=== PATIENT | female | born 1955 | race Caucasian/White ===

== ENCOUNTER 2016-10-20 07:06 | Emergency (ER) | payer MEDICARE ==
[~2016-10-20] VITALS: Ht 152.4 cm; Wt 104.3 kg
[2016-10-20 07:14] VITALS: BP 133/73
[2016-10-20] MEDS ORDERED: FLUT1SPR2 (07:21)
[2016-10-20] MEDS ORDERED: LEVO100T5 (07:21)
[2016-10-20] MEDS ORDERED: ROPI1TAB (07:21)
[2016-10-20] MEDS ORDERED: PRIM50TA6 (07:21)
[2016-10-20] MEDS ORDERED: FLUO1TAB3 (07:21)
[2016-10-20] MEDS ORDERED: MECLIZINE 25 MG TABLET PO ONE (07:45)
[2016-10-20] MEDS ORDERED: ZOFR4TAB3 PO (07:47)
[2016-10-20] MEDS ORDERED: MECL-68 PO (07:47)
== END 2016-10-20 08:05 | disposition home or self-care (01) ==
LOC: M ED 07:59
DX: H43.392 Other vitreous opacities, left eye (principal); H81.392 Other peripheral vertigo, left ear

== ENCOUNTER 2017-04-19 11:00 | Emergency (ER) | payer MEDICARE ==
[~2017-04-19] VITALS: Ht 162.6 cm; Wt 100.0 kg
[~2017-04-19 11:00] MED LIST: FLUO1TAB3; FLUT1SPR2; LEVO100T5; MECL-68 PO; PRIM50TA6; ROPI1TAB; ZOFR4TAB3 PO
[2017-04-19] MEDS ORDERED: HYDROmorphone HCL 1 MG/ML SYRINGE (J1170) IM ONE (12:15)
[2017-04-19] MEDS ORDERED: HYDR-3713 PO (12:47)
[2017-04-19 12:57] VITALS: BP 134/77
== END 2017-04-19 12:58 | disposition home or self-care (01) ==
LOC: M ED 11:00
DX: M25.561 Pain in right knee (principal); J45.909 Unspecified asthma, uncomplicated; E66.9 Obesity, unspecified; E03.9 Hypothyroidism, unspecified; M19.90 Unspecified osteoarthritis, unspecified site; F33.9 Major depressive disorder, recurrent, unspecified; Z79.899 Other long term (current) drug therapy; Z88.1 Allergy status to other antibiotic agents; Z98.0 Intestinal bypass and anastomosis status; Z85.038 Personal history of other malignant neoplasm of large intestine
CPT/HCPCS: 96372; 99282; J1170

== ENCOUNTER 2017-08-06 18:16 | Emergency (ER) | payer OTHER, MEDICARE ==
[2017-08-06] MEDS: ONDANSETRON 4MG/2ML VIAL (J2405) IV (21:15)
[2017-08-06] MEDS: NS 1,000 ML IV (21:15)
[2017-08-06 21:43] LABS: BASO % 0.2 % (0.0-1.0); EOS # 0.1 10^3/uL (0.0-0.50); EOS % 0.7 % (0.0-3.0); HEMATOCRIT 43.4 % (36.0-47.0); IMMATURE GRANULOCYTE % 0.2 % (0-0); LYMPH # 1.5 10^3/uL (1.5-4.5); LYMPH % 17.2 % (24.0-44.0); MEAN CORPUSCULAR HEMOGLOBIN 29.5 pg (27.0-33.0); MEAN CORPUSCULAR HGB CONC 32.3 g/dl (32.0-36.5); MEAN CORPUSCULAR VOLUME 91.4 fl (80.0-96.0); MONO # 0.4 10^3/uL (0.0-0.8); MONO % 4.9 % (0.0-5.0); NEUTROPHILS # 6.6 10^3/uL (1.8-7.7); NEUTROPHILS % 76.8 % (36.0-66.0); PLATELET COUNT, AUTOMATED 212 10^3/uL (150-450); RED BLOOD COUNT 4.75 10^6/uL (4.00-5.40); RED CELL DISTRIBUTION WIDTH 14.6 % (11.5-14.5); WHITE BLOOD COUNT 8.5 10^3/uL (4.0-10.0)
[2017-08-06 22:16] LABS: ALBUMIN 3.9 GM/DL (3.2-5.2); ALBUMIN/GLOBULIN RATIO 1.05 (1.00-1.93); ALKALINE PHOSPHATASE 63 U/L (45-117); ALT/SGPT 24 U/L (12-78); ANION GAP 7 MEQ/L (8-16); AST/SGOT 30 U/L (7-37); BILIRUBIN,TOTAL 0.5 MG/DL (0.2-1.0); BLOOD UREA NITROGEN 13 MG/DL (7-18); CALCIUM LEVEL 8.6 MG/DL (8.8-10.2); CARBON DIOXIDE LEVEL 27 MEQ/L (21-32); CHLORIDE LEVEL 104 MEQ/L (98-107); CREATININE FOR GFR 0.93 MG/DL (0.55-1.02); GLOMERULAR FILTRATION RATE > 60.0 (>45); GLUCOSE, FASTING 98 MG/DL (80-110); POTASSIUM SERUM 4.1 MEQ/L (3.5-5.1); SODIUM LEVEL 138 MEQ/L (136-145); TOTAL PROTEIN 7.6 GM/DL (6.4-8.2)
[2017-08-06] MEDS: ONDANSETRON 4 MG TAB (S0181) PO (23:10)
== END 2017-08-06 23:13 | disposition home or self-care (01) ==
LOC: M ED 18:16
DX: R11.2 Nausea with vomiting, unspecified (principal); R19.7 Diarrhea, unspecified; E03.9 Hypothyroidism, unspecified; G25.81 Restless legs syndrome; F32.9 Major depressive disorder, single episode, unspecified; R25.1 Tremor, unspecified; Z98.84 Bariatric surgery status; Z90.49 Acquired absence of other specified parts of digestive tract
CPT/HCPCS: J2405

== ENCOUNTER → 2017-08-26 | Outpatient (REF) | payer MEDICARE | LOC: M SFHCPLAZ 14:37 | DX: Z86.14 Personal history of Methicillin resistant Staphylococcus aureus infection (principal) | CPT/HCPCS: 87070 ==

== ENCOUNTER 2018-07-12 16:26 | Emergency (ER) | payer OTHER ==
[2018-07-12] MEDS: ADACEL/BOOSTRIX VACCINE (DIPHTH/PERTUSS/ACELL/TETANUS)0.5ML SYR (90715) IM (17:49)
[2018-07-12] MEDS: DERMABOND TOPICAL SKIN ADHESIVE TOP (18:00)
== END 2018-07-12 18:33 | disposition home or self-care (01) ==
LOC: M ED 16:26
DX: S61.411A Laceration without foreign body of right hand, initial encounter (principal); S80.02XA Contusion of left knee, initial encounter; S00.83XA Contusion of other part of head, initial encounter; W01.0XXA Fall on same level from slipping, tripping and stumbling without subsequent striking against object, initial encounter; Y92.018 Other place in single-family (private) house as the place of occurrence of the external cause; J45.909 Unspecified asthma, uncomplicated; E07.9 Disorder of thyroid, unspecified; F33.9 Major depressive disorder, recurrent, unspecified; R25.1 Tremor, unspecified; Z79.899 Other long term (current) drug therapy; Z79.890 Hormone replacement therapy; Z88.1 Allergy status to other antibiotic agents
CPT/HCPCS: 90715

== ENCOUNTER 2018-09-13 13:40 | Emergency (ER) | payer OTHER ==
[~2018-09-13] VITALS: Ht 149.9 cm; Wt 109.1 kg
[~2018-09-13 13:40] MED LIST changes: +ACET1TAB55 PO; +FLUO20CA19 PO; +HYDR-3713 PO; +VITA100072 PO; +ZOFR4TAB14 PO; -ZOFR4TAB3 PO
[2018-09-13] MEDS ORDERED: VITA-122 PO (13:47)
[2018-09-13] MEDS ORDERED: CO Q10CA PO (13:48)
[2018-09-13] MEDS ORDERED: ONDANSETRON 4MG/2ML VIAL (J2405) IV ONE (16:00)
[2018-09-13] MEDS ORDERED: KETOROLAC 30 MG/ML VIAL (J1885) IV ONE (16:00)
[2018-09-13] MEDS ORDERED: MORPHINE 2 MG/ML 1ML SYRINGE (J2270) IV PRN (16:00)
[2018-09-13 16:14] LABS: BASO # 0.1 10^3/uL (0.0-0.2); BASO % 0.6 % (0.0-1.0); EOS # 0.2 10^3/uL (0.0-0.50); EOS % 1.9 % (0.0-3.0); HEMATOCRIT 40.1 % (36.0-47.0); HEMOGLOBIN 12.8 g/dl (12.0-15.5); LYMPH # 3.9 10^3/uL (1.5-4.5); LYMPH % 45.6 % (24.0-44.0); MEAN CORPUSCULAR HEMOGLOBIN 29.6 pg (27.0-33.0); MEAN CORPUSCULAR HGB CONC 31.9 g/dl (32.0-36.5); MEAN CORPUSCULAR VOLUME 92.6 fl (80.0-96.0); MONO # 0.9 10^3/uL (0.0-0.8); MONO % 11.1 % (0.0-5.0); NEUTROPHILS # 3.4 10^3/uL (1.8-7.7); NEUTROPHILS % 40.6 % (36.0-66.0); PLATELET COUNT, AUTOMATED 212 10^3/uL (150-450); RED BLOOD COUNT 4.33 10^6/uL (4.00-5.40); WHITE BLOOD COUNT 8.5 10^3/uL (4.0-10.0)
[2018-09-13 16:40] LABS: ERYTHROCYTE SEDIMENTATION RATE 40 mm/hr (0-30)
[2018-09-13 16:48] LABS: ALBUMIN 3.7 GM/DL (3.2-5.2); ALT/SGPT 21 U/L (12-78); BILIRUBIN,DIRECT < 0.1 MG/DL (0.0-0.2); BILIRUBIN,TOTAL 0.2 MG/DL (0.2-1.0); BLOOD UREA NITROGEN 17 MG/DL (7-18); C REACTIVE PROTEIN QUANTITATIV 1.35 MG/DL (0.00-0.30); CALCIUM LEVEL 8.4 MG/DL (8.8-10.2); CARBON DIOXIDE LEVEL 30 MEQ/L (21-32); CHLORIDE LEVEL 105 MEQ/L (98-107); CREATININE FOR GFR 0.73 MG/DL (0.55-1.30); GLOMERULAR FILTRATION RATE > 60.0 (>45); GLUCOSE, FASTING 90 MG/DL (70-100); POTASSIUM SERUM 4.2 MEQ/L (3.5-5.1); SODIUM LEVEL 139 MEQ/L (136-145); TOTAL PROTEIN 7.3 GM/DL (6.4-8.2)
[2018-09-13] MEDS ORDERED: PROHANCE 279.3MG/ML 5ML VIAL (A9576) As Ordered ONE (18:45)
[2018-09-13] MEDS ORDERED: PROHANCE 279.3MG/ML 15ML VIAL (A9576) As Ordered ONE (18:46)
--- NOTE | 2018-09-13 20:29 | REPVR ---
EXAM: MR Lumbar Spine Without and With Contrast. EXAM DATE/TIME: 09/13/2018 6:27 PM CLINICAL HISTORY: 62 years old, female; Signs and symptoms; Lumbago with sciatica; Left; Patient HX: HX spinal osteo, elev esr, crp TECHNIQUE: Multiplanar magnetic resonance images of the lumbar spine without and with intravenous contrast. CONTRAST: 20 ml of prohance administered intravenously. COMPARISON: CR Spine. Lumbosacral, complete 09/13/2018 4:08 PM FINDINGS: Vertebrae: Mild vertebral signal demonstrated at L5 and S1 maybe related to prior infection. No acute marrow space edema demonstrated. Spinal cord: Normal signal. No cord compression. DISCS/SPINAL CANAL/NEURAL FORAMINA: L1-L2: Mild annular bulge at L1-2 without neural compromise. L2-L3: Mild annular bulge at L2-3 without neural compromise. Bilateral facet joint arthropathy. L3-L4: There is a mild central spinal stenosis at L3-4 secondary to diffuse annular bulging, thickened ligamentum flavum and facet joint arthropathy. Mild foraminal narrowing on the right. No lateral recess stenosis. L4-L5: There is a severe central spinal stenosis at L4-5 secondary to diffuse annular bulging, thickened ligamentum flavum and facet joint arthropathy. Mild foraminal narrowing on the left and moderate to severe foraminal stenosis on right. No lateral recess stenosis. L5-S1: Status post auto fusion L5-S1. Bilateral facet arthropathy. Soft tissues: Unremarkable. IMPRESSION: 1. Mild vertebral signal demonstrated at L5 and S1 maybe related to prior infection. No acute marrow space edema demonstrated. 2. There is a mild central spinal stenosis at L3-4 secondary to diffuse annular bulging, thickened ligamentum flavum and facet joint arthropathy. Mild foraminal narrowing on the right. No lateral recess stenosis. 3. There is a severe central spinal stenosis at L4-5 secondary to diffuse annular bulging, thickened ligamentum flavum and facet joint arthropathy. Mild foraminal narrowing on the left and moderate to severe foraminal stenosis on right. No lateral recess stenosis. Electronically signed by: Cheko Krishnan On 09/13/2018 20:29:31 PM
[2018-09-13] MEDS ORDERED: MORPHINE 4 MG/ML 1ML VIAL/SYRINGE (J2270) IV ONE (21:15)
[2018-09-13] MEDS ORDERED: PRED20TA PO (21:15)
[2018-09-13] MEDS ORDERED: traMADol 50 MG TAB (BULK 4 TAB ED) PO ONE (21:15)
[2018-09-13] MEDS ORDERED: dexameTHASONE 20 MG/5 ML VIAL (J1100) IV ONE (21:15)
[2018-09-13 22:15] VITALS: BP 139/60
--- NOTE | 2018-09-14 10:21 | REP ---
PELVIS: AP view of the pelvis is performed and demonstrates no fracture, dislocation, or intrinsic bone disease. IMPRESSION: No acute abnormalities. Electronically Signed by Rickey Waggoner MD 09/14/2018 10:42 P
--- NOTE | 2018-09-14 10:22 | REP ---
LEFT HIP, TWO VIEWS: Two views left hip are performed. There is no acute fracture, dislocation, or intrinsic bone disease. IMPRESSION: Negative left hip exam. Electronically Signed by Rickey Waggoner MD 09/14/2018 10:47 P
--- NOTE | 2018-09-14 10:24 | REP ---
LUMBOSACRAL SPINE: Five views of lumbosacral spine performed. There is no compression fracture. There is normal lumbar lordosis. There is mild diffuse spurring. There is mild disc space narrowing and subchondral sclerosis with vacuum at L4-5. There is severe narrowing at the L5-S1 disc space with subchondral sclerosis. Diffuse sclerosis and spurring is seen at the posterior facet joints. There is minimal narrowing at the L3-4 disc space. The posterior elements are intact. Metallic clips are seen in the pelvis. IMPRESSION: Degenerative changes, most significant at L5-S1 level. Electronically Signed by Rickey Waggoner MD 09/14/2018 10:48 P
--- NOTE | 2018-09-15 11:46 | ED PDOC ---
Post-Departure Follow-Up [facility]ri ls spine [facility]ed to [facility] for [facility] Martin Villegas MD Sep 15, 2018 11:46
== END 2018-09-13 22:21 | disposition home or self-care (01) ==
LOC: M ED 13:40
DX: G58.8 Other specified mononeuropathies (principal); M51.36 Other intervertebral disc degeneration, lumbar region; E07.9 Disorder of thyroid, unspecified; Z88.0 Allergy status to penicillin; Z79.890 Hormone replacement therapy; Z79.899 Other long term (current) drug therapy; Z98.890 Other specified postprocedural states
CPT/HCPCS: 72110; 72158; 72170; 73502; 80048; 80076; 83605; 85025; 85652; 86140; 87040; 93041; 94760; 96374; 96375; 96376; 99285; A9576; J1100; J1885; J2270; J2405

== ENCOUNTER 2019-04-19 19:56 | Emergency (ER) | payer OTHER ==
[~2019-04-19] VITALS: Ht 152.4 cm; Wt 104.5 kg
[~2019-04-19 19:56] MED LIST changes: +CO Q10CA PO; +PRED20TA PO; +VITA-122 PO; +VITA100018 PO; -VITA100072 PO
[2019-04-19 19:58] VITALS: BP 165/71
[2019-04-19] MEDS ORDERED: IBUPROFEN 600 MG TAB PO ONE (21:00)
--- NOTE | 2019-04-20 03:07 | REP ---
Clinical: Trauma. Injury. Technique: AP and lateral views of the right tibia / fibula. Findings: Advanced tricompartmental arthritic changes at the knee along with moderate arthritic changes at the ankle. No acute fracture or dislocation. No subcutaneous emphysema or foreign body. Impression: Degenerative changes at the knee and ankle. No acute fracture or dislocation. Electronically Signed by Ab Kimbrough MD 04/20/2019 02:58 A
--- NOTE | 2019-04-20 03:08 | REP ---
Clinical: Trauma. Injury. Technique: AP, lateral, bilateral oblique views of the right ankle. Findings: Generalized age-related arthritic changes are appreciated. No obvious acute fracture or dislocation identified. Moderate calcaneal heal spur noted. Ankle mortise appears intact. Impression: No acute fracture or dislocation appreciated. Electronically Signed by Ab Kimbrough MD 04/20/2019 02:59 A
== END 2019-04-19 21:02 | disposition home or self-care (01) ==
LOC: M ED 19:56
DX: S93.401A Sprain of unspecified ligament of right ankle, initial encounter (principal); X50.9XXA Other and unspecified overexertion or strenuous movements or postures, initial encounter; Y92.018 Other place in single-family (private) house as the place of occurrence of the external cause; I10 Essential (primary) hypertension; E07.9 Disorder of thyroid, unspecified; Z98.84 Bariatric surgery status; Z79.899 Other long term (current) drug therapy; Z79.890 Hormone replacement therapy; Z88.1 Allergy status to other antibiotic agents

== ENCOUNTER 2019-05-17 10:56 | Emergency (ER) | payer OTHER ==
[~2019-05-17] VITALS: Ht 149.9 cm; Wt 116.7 kg
[2019-05-17 12:23] LABS: BASO % 0.5 % (0.0-1.0); EOS # 0.1 10^3/uL (0.0-0.5); EOS % 1.4 % (0.0-3.0); HEMATOCRIT 43.1 % (36.0-47.0); HEMOGLOBIN 13.9 g/dl (12.0-15.5); LYMPH % 35.4 % (24.0-44.0); MEAN CORPUSCULAR HEMOGLOBIN 30.8 pg (27.0-33.0); MEAN CORPUSCULAR HGB CONC 32.3 g/dl (32.0-36.5); MEAN CORPUSCULAR VOLUME 95.6 fl (80.0-96.0); MONO # 0.7 10^3/uL (0.0-0.8); MONO % 8.3 % (0.0-5.0); NEUTROPHILS # 4.5 10^3/uL (1.5-8.5); NEUTROPHILS % 53.9 % (36.0-66.0); PLATELET COUNT, AUTOMATED 217 10^3/uL (150-450); RED BLOOD COUNT 4.51 10^6/uL (4.00-5.40); WHITE BLOOD COUNT 8.4 10^3/uL (4.0-10.0)
[2019-05-17] MEDS ORDERED: NS 1,000 ML IV ONE (13:00)
[2019-05-17] MEDS ORDERED: MECLIZINE 25 MG TABLET PO ONE (13:00)
--- NOTE | 2019-05-17 13:48 | REP ---
INDICATION: Dizziness. PROCEDURE: Unenhanced axial images of the brain were obtained from skull base to vertex. DATE AND TIME OF STUDY: 05/17/2019 13:36 COMPARISON STUDIES: 08/08/2013 FINDINGS: There is no acute intracranial hemorrhage, acute cortical infarction, mass effect or hydrocephalous. Tiny air fluid level is present within the right sphenoid sinus. Atherosclerosis of the visualized V4 segments is noted. CONCLUSION: No acute intracranial process. Minimal fluid within the right sphenoid sinus which may represent sequelae of acute paranasal sinus disease. Intracranial atherosclerotic disease. Electronically Signed by Harman Robertson DO 05/17/2019 01:40 P
[2019-05-17 14:37] LABS: ALBUMIN 3.6 GM/DL (3.2-5.2); ALT/SGPT 23 U/L (12-78); BILIRUBIN,TOTAL 0.5 MG/DL (0.2-1.0); BLOOD UREA NITROGEN 13 MG/DL (7-18); CALCIUM LEVEL 9.2 MG/DL (8.8-10.2); CARBON DIOXIDE LEVEL 31 MEQ/L (21-32); CHLORIDE LEVEL 102 MEQ/L (98-107); CK-MB VALUE MASS 1.3 NG/ML (<3.6); CPK CREATINE PHOSPHOKINASE 103 U/L (26-192); GLOMERULAR FILTRATION RATE > 60.0 (>45); GLUCOSE, FASTING 97 MG/DL (70-100); MB/CK RELATIVE INDEX 1.26 (< OR =4); POTASSIUM SERUM 4.6 MEQ/L (3.5-5.1); SODIUM LEVEL 137 MEQ/L (136-145); TOTAL PROTEIN 7.2 GM/DL (6.4-8.2); TROPONIN I < 0.02 NG/ML (< 0.10)
[2019-05-17] MEDS ORDERED: MECL-68 PO (15:56)
[2019-05-17 16:20] VITALS: BP 138/84
--- NOTE | 2019-05-18 07:36 | ECGEPIP ---
[facility] - ED Test Date: 2019-05-17 Pat Name: JANET BRADY Department: Room: - Gender: Female [employer] Att[employer]: DARRELL : 1955 Requested By: JUANA AG Order Number: [id number] Reading MD: Johnny Santo Measurements Intervals [place] Rate: 65 P: 56 FL: 172 QRS: 60 QRSD: 89 T: 42 QT: 416 QTc: 433 Interpretive Statements SINUS RHYTHM SIMILAR TO 03/31/16 Electronically Signed on 05-18-2019 7:35:37 EDT by Johnny Santo
== END 2019-05-17 16:22 | disposition home or self-care (01) ==
LOC: M ED 10:56
DX: H81.392 Other peripheral vertigo, left ear (principal); E03.9 Hypothyroidism, unspecified; G25.81 Restless legs syndrome; Z98.84 Bariatric surgery status; Z90.49 Acquired absence of other specified parts of digestive tract; Z79.899 Other long term (current) drug therapy; Z88.1 Allergy status to other antibiotic agents

== ENCOUNTER → 2019-06-09 | Outpatient (REF) | payer OTHER ==
[2019-06-09 20:22] LABS: BASO % 0.4 % (0.0-1.0); EOS # 0.2 10^3/uL (0.0-0.5); EOS % 1.5 % (0.0-3.0); HEMATOCRIT 43.8 % (36.0-47.0); HEMOGLOBIN 13.9 g/dl (12.0-15.5); LYMPH # 4.2 10^3/uL (1.5-5.0); LYMPH % 42.4 % (24.0-44.0); MEAN CORPUSCULAR HEMOGLOBIN 30.8 pg (27.0-33.0); MEAN CORPUSCULAR HGB CONC 31.7 g/dl (32.0-36.5); MEAN CORPUSCULAR VOLUME 97.1 fl (80.0-96.0); MONO # 0.8 10^3/uL (0.0-0.8); MONO % 7.9 % (0.0-5.0); NEUTROPHILS # 4.6 10^3/uL (1.5-8.5); NEUTROPHILS % 47.3 % (36.0-66.0); PLATELET COUNT, AUTOMATED 224 10^3/uL (150-450); RED BLOOD COUNT 4.51 10^6/uL (4.00-5.40); WHITE BLOOD COUNT 9.8 10^3/uL (4.0-10.0)
[2019-06-09 20:35] LABS: ALBUMIN 3.7 GM/DL (3.2-5.2); BILIRUBIN,TOTAL 0.2 MG/DL (0.2-1.0); CALCIUM LEVEL 9.4 MG/DL (8.8-10.2); CHOLESTEROL RISK RATIO 3.984 (<5); CREATININE FOR GFR 1.04 MG/DL (0.55-1.30); PERCENT SATURATION 18.3 % (13.2-45.0); POTASSIUM SERUM 4.1 MEQ/L (3.5-5.1); THYROID STIMULATING HORMONE 15.7 uIU/ML (0.358-3.740); TOTAL PROTEIN 7.7 GM/DL (6.4-8.2)
[2019-06-09 20:36] LABS: TOTAL 25(OH) VITAMIN D 18.3 NG/ML (30.0-100.0)
[2019-06-09 20:39] LABS: HEMOGLOBIN A1c 5.9 %
[2019-06-09 20:42] LABS: HEMATOCRIT 43.8 % (36.0-47.0)
== END ==
LOC: M SFHCLERA 15:48
PROVIDERS: ATTEND Family Medicine
DX: E66.01 Morbid (severe) obesity due to excess calories (principal); E03.9 Hypothyroidism, unspecified; E55.9 Vitamin D deficiency, unspecified; Z98.84 Bariatric surgery status; Z23 Encounter for immunization
CPT/HCPCS: 80053; 80061; 82306; 82607; 82728; 82747; 83036; 83550; 84443; 84630; 85025; 90471; 90472; 90682; 90715; 90732; G0463

== ENCOUNTER → 2019-06-10 | Outpatient (REF) | payer OTHER | LOC: M LABSMT 16:59 | PROVIDERS: ATTEND Family Medicine | DX: E66.01 Morbid (severe) obesity due to excess calories (principal); E03.9 Hypothyroidism, unspecified; E55.9 Vitamin D deficiency, unspecified; Z98.84 Bariatric surgery status ==

== ENCOUNTER → 2019-07-22 | Outpatient (REF) | payer OTHER | LOC: M SFHCLERA 12:38 | PROVIDERS: ATTEND Family Medicine | DX: E03.9 Hypothyroidism, unspecified (principal) ==

== ENCOUNTER 2019-08-26 10:46 | Day surgery (SDC) | payer OTHER ==
[~2019-08-26] VITALS: Ht 149.9 cm; Wt 115.2 kg
[~2019-08-26 10:46] MED LIST changes: +DICL1GEL3 TOP; +LEVO112T2 PO; -MECL-68 PO; +MECL-86 PO; +MECL1TAB31 PO; +NS 1,000 ML IV ONE; -ROPI1TAB; +ROPI1TAB PO; +VITA50005 PO
[2019-08-26] MEDS ORDERED: propofoL 200 MG/20 ML VIAL As Ordered ONE ×2 (11:33→12:09)
[2019-08-26] MEDS ORDERED: LIDOCAINE 2% INJ 100 MG/5 ML SDV (FOR ANES.) As Ordered ONE (11:33)
--- NOTE | 2019-08-26 11:57 | ROOR ---
Patient Name: Brooke Church Procedure Date: 08/26/2019 11:31 AM Date of : 1955 Age: 63 Room: [facility] Gender: Female Note Status: Finalized Procedure: Colonoscopy Indications: High risk colon cancer surveillance: Personal history of colon cancer Providers: Brooks Hansen Jr, MD Referring MD: Rickey DUMONT MD Requesting Provider: Medicines: Propofol per Anesthesia Complications: No immediate complications. Procedure: Pre-Anesthesia Assessment: - Prior to the procedure, a History and Physical was performed, and patient medications and allergies were reviewed. The patient is competent. The risks and benefits of the procedure and the sedation options and risks were discussed with the patient. All questions were answered and informed consent was obtained. Patient identification and proposed procedure were verified by the physician and the nurse in the pre-procedure area and in the procedure room. Mental Status Examination: alert and oriented. Airway Examination: normal oropharyngeal airway and neck mobility. Respiratory Examination: clear to auscultation. CV Examination: normal. ASA Grade Assessment: II - A patient with mild systemic disease. After reviewing the risks and benefits, the patient was deemed in satisfactory condition to undergo the procedure. The anesthesia plan was to use moderate sedation / analgesia (conscious sedation). Immediately prior to administration of medications, the patient was re-assessed for adequacy to receive sedatives. The heart rate, respiratory rate, oxygen saturations, blood pressure, adequacy of pulmonary ventilation, and response to care were monitored throughout the procedure. The physical status of the patient was re-assessed after the procedure. The Colonoscope was introduced through the anus and advanced to the cecum, identified by appendiceal orifice and ileocecal valve. The colonoscopy was performed without difficulty. The patient tolerated the procedure well. The quality of the bowel preparation was adequate. Findings: The rectum, descending colon, transverse colon, ascending colon, cecum, appendiceal orifice, ileocecal valve and anastomosis appeared normal. A small polyp was found in the sigmoid colon. The polyp was removed with a jumbo cold forceps. Resection and retrieval were complete. Impression: - The rectum, descending colon, transverse colon, ascending colon, cecum, appendiceal orifice, ileocecal valve and colonic anastomosis are normal. - One small polyp in the sigmoid colon, removed with a jumbo cold forceps. Resected and retrieved. Recommendation: - Repeat colonoscopy in 5 years for surveillance. Brooks Hansen MD Brooks Hansen Jr, MD 08/26/2019 11:56:47 AM Electronically signed by Brooks Hansen Jr, MD Number of Addenda: 0 Note Initiated On: 08/26/2019 11:31 AM Estimated Blood Loss: Estimated blood loss: none.
[2019-08-26 12:24] VITALS: BP 117/57
== END 2019-08-26 12:27 | disposition home or self-care (01) ==
LOC: M OPP 10:46
PROVIDERS: ATTEND Surgery
DX: Z12.11 Encounter for screening for malignant neoplasm of colon (principal); Z85.038 Personal history of other malignant neoplasm of large intestine; D12.5 Benign neoplasm of sigmoid colon; Z79.899 Other long term (current) drug therapy; Z88.1 Allergy status to other antibiotic agents; Z98.84 Bariatric surgery status

== ENCOUNTER 2021-02-23 22:06 | Emergency (ER) | payer OTHER ==
[~2021-02-23] VITALS: Ht 152.4 cm; Wt 113.0 kg
[~2021-02-23 22:06] MED LIST changes: +ACET1TAB16 PO; +ERGO500029 PO; -FLUO20CA19 PO; +FLUO20CA22 PO; -NS 1,000 ML IV ONE; -ROPI1TAB PO; +ROPI1TAB3 PO; -VITA50005 PO
[2021-02-23] MEDS ORDERED: LEVO150T7 (22:20)
--- NOTE | 2021-02-24 00:01 | REPVR ---
PROCEDURE INFORMATION: Exam: CT Head Without Contrast Exam date and time: 02/23/2021 11:41 PM Age: 65 years old Clinical indication: Pain; Headache not specified; Additional info: Headache, vomiting x 3 days TECHNIQUE: Imaging protocol: Computed tomography of the head without contrast. Radiation optimization: All CT scans at this facility use at least one of these dose optimization techniques: automated exposure control; mA and/or kV adjustment per patient size (includes targeted exams where dose is matched to clinical indication); or iterative reconstruction. COMPARISON: CT Head without contrast 05/17/2019 1:25 PM FINDINGS: There are no intra-or extra-axial hemorrhages or fluid collections. There is no mass effect or midline shift. Ventricles are nondilated for age. There are no focal parenchymal abnormalities. No calvarial fractures. Visualized paranasal sinuses and mastoid air cells are clear. IMPRESSION: No acute intracranial process. No intracranial hemorrhage. Electronically signed by: Sincere Henry On 02/24/2021 00:00:57 AM
[2021-02-24] MEDS ORDERED: NS 1,000 ML IV SCH (00:10)
[2021-02-24 00:25] LABS: BASO # 0.1 10^3/uL (0.0-0.2); BASO % 0.5 % (0.0-1.0); EOS # 0.1 10^3/uL (0.0-0.5); EOS % 0.6 % (0.0-3.0); HEMATOCRIT 43.4 % (36.0-47.0); HEMOGLOBIN 14.2 g/dl (12.0-15.5); LYMPH # 3.4 10^3/uL (1.5-5.0); LYMPH % 31.6 % (24.0-44.0); MEAN CORPUSCULAR HEMOGLOBIN 30.1 pg (27.0-33.0); MEAN CORPUSCULAR HGB CONC 32.7 g/dl (32.0-36.5); MEAN CORPUSCULAR VOLUME 92.1 fl (80.0-96.0); MONO # 0.9 10^3/uL (0.0-0.8); MONO % 7.9 % (2.0-8.0); NEUTROPHILS # 6.4 10^3/uL (1.5-8.5); NEUTROPHILS % 58.9 % (36.0-66.0); PLATELET COUNT, AUTOMATED 237 10^3/uL (150-450); RED BLOOD COUNT 4.71 10^6/uL (4.00-5.40); WHITE BLOOD COUNT 10.9 10^3/uL (4.0-10.0)
[2021-02-24] MEDS ORDERED: METOCLOPRAMIDE INJ 10MG/2ML VIAL (J2765 PER 1) IV ONE (00:30)
[2021-02-24 00:48] LABS: ALBUMIN 4.1 GM/DL (3.2-5.2); BILIRUBIN,DIRECT 0.2 MG/DL (0.0-0.2); BILIRUBIN,TOTAL 0.5 MG/DL (0.2-1.0); CALCIUM LEVEL 9.4 MG/DL (8.8-10.2); CREATININE FOR GFR 0.99 MG/DL (0.55-1.30); GLOMERULAR FILTRATION RATE 59.9 (>45); POTASSIUM SERUM 3.4 MEQ/L (3.5-5.1); TOTAL PROTEIN 8.1 GM/DL (6.4-8.2)
[2021-02-24] MEDS ORDERED: POTASSIUM CHLORIDE 10 MEQ SR TABLET PO ONE (01:00)
[2021-02-24 02:23] VITALS: BP 128/77
== END 2021-02-24 02:24 | disposition home or self-care (01) ==
LOC: M ED 22:06
DX: R51.9 Headache, unspecified (principal); Z85.038 Personal history of other malignant neoplasm of large intestine; M86.9 Osteomyelitis, unspecified; G25.81 Restless legs syndrome; Z98.84 Bariatric surgery status; E66.9 Obesity, unspecified; F33.9 Major depressive disorder, recurrent, unspecified; Z79.899 Other long term (current) drug therapy
CPT/HCPCS: 70450; 80048; 80076; 83690; 85025; 96361; 96374; 99284; J2765

== ENCOUNTER 2021-08-25 15:40 | Inpatient (IN) | payer OTHER ==
[~2021-08-25] VITALS: Ht 152.4 cm; Wt 117.1 kg
[~2021-08-25 15:40] MED LIST changes: +LEVO150T7 PO
[2021-08-25] MEDS ORDERED: MORPHINE 4 MG/ML 1ML VIAL/SYRINGE (J2270) IV ONE (17:10)
[2021-08-25] MEDS ORDERED: ONDANSETRON 4MG/2ML VIAL IV ONE (17:10)
[2021-08-25] MEDS ORDERED: NS 1,000 ML IV ONE (17:10)
[2021-08-25] MEDS ORDERED: DICYCLOMINE 10 MG CAP PO ONE (17:10)
[2021-08-25 17:18] LABS: BASO % 0.3 % (0.0-1.0); EOS # 0.1 10^3/uL (0.0-0.5); EOS % 0.6 % (0.0-3.0); HEMATOCRIT 45.1 % (36.0-47.0); HEMOGLOBIN 14.6 g/dl (12.0-15.5); LYMPH # 1.6 10^3/uL (1.5-5.0); MEAN CORPUSCULAR HEMOGLOBIN 30.4 pg (27.0-33.0); MEAN CORPUSCULAR HGB CONC 32.4 g/dl (32.0-36.5); MEAN CORPUSCULAR VOLUME 93.8 fl (80.0-96.0); MONO # 0.9 10^3/uL (0.0-0.8); NEUTROPHILS # 11.8 10^3/uL (1.5-8.5); NEUTROPHILS % 81.5 % (36.0-66.0); PLATELET COUNT, AUTOMATED 204 10^3/uL (150-450); RED BLOOD COUNT 4.81 10^6/uL (4.00-5.40); WHITE BLOOD COUNT 14.4 10^3/uL (4.0-10.0)
[2021-08-25 17:41] LABS: ALBUMIN 3.6 GM/DL (3.2-5.2); ALT/SGPT 27 U/L (12-78); BILIRUBIN,DIRECT 0.1 MG/DL (0.0-0.2); BILIRUBIN,TOTAL 0.3 MG/DL (0.2-1.0); BLOOD UREA NITROGEN 14 MG/DL (7-18); CALCIUM LEVEL 9.2 MG/DL (8.8-10.2); CARBON DIOXIDE LEVEL 30 MEQ/L (21-32); CHLORIDE LEVEL 104 MEQ/L (98-107); CREATININE FOR GFR 0.88 MG/DL (0.55-1.30); GLOMERULAR FILTRATION RATE > 60.0 (>45); GLUCOSE, FASTING 107 MG/DL (70-100); LIPASE 70 U/L (73-393); POTASSIUM SERUM 3.7 MEQ/L (3.5-5.1); SODIUM LEVEL 138 MEQ/L (136-145)
[2021-08-25] MEDS ORDERED: ISOVUE-370 76% 100ML VIAL As Ordered ONE (17:44)
[2021-08-25] MEDS ORDERED: KETOROLAC 30 MG/ML 1ML VIAL IV PRN (20:30)
[2021-08-25] MEDS ORDERED: ONDANSETRON 4MG/2ML VIAL IV PRN (20:30)
[2021-08-25] MEDS ORDERED: HOME MED LIST COMPLETE! XX SCH (21:05)
[2021-08-25 22:45] VITALS: BP 135/73
[2021-08-25] MEDS: LR 1,000 ML IV SCH (22:46)
[2021-08-26 02:00] VITALS: BP 141/75
[2021-08-26] MEDS: LR 1,000 ML IV SCH ×4 (05:01→23:02)
[2021-08-26 06:00] VITALS: BP 147/78
[2021-08-26 09:32] LABS: BASO % 0.2 % (0.0-1.0); EOS # 0.2 10^3/uL (0.0-0.5); EOS % 1.7 % (0.0-3.0); HEMATOCRIT 38.3 % (36.0-47.0); LYMPH # 2.9 10^3/uL (1.5-5.0); MEAN CORPUSCULAR HEMOGLOBIN 30.2 pg (27.0-33.0); MEAN CORPUSCULAR HGB CONC 31.9 g/dl (32.0-36.5); MEAN CORPUSCULAR VOLUME 94.8 fl (80.0-96.0); MONO # 0.7 10^3/uL (0.0-0.8); MONO % 7.9 % (2.0-8.0); NEUTROPHILS # 5.2 10^3/uL (1.5-8.5); NEUTROPHILS % 57.8 % (36.0-66.0); PLATELET COUNT, AUTOMATED 192 10^3/uL (150-450); RED BLOOD COUNT 4.04 10^6/uL (4.00-5.40)
[2021-08-26 09:33] LABS: HEMOGLOBIN 12.2 g/dl (12.0-15.5)
[2021-08-26 10:00] VITALS: BP 144/80
[2021-08-26] MEDS: MORPHINE 2 MG/ML 1ML VIAL (J2270) IV PRN ×2 (11:22→17:08)
[2021-08-26 14:00] VITALS: BP 148/80
[2021-08-26] MEDS ORDERED: GASTROGRAFIN SOLUTION 30ML (Q9963) PO ONE (14:30)
[2021-08-26 18:00] VITALS: BP 149/80
[2021-08-26 22:00] VITALS: BP 148/83
[2021-08-27] VITALS (7 sets, daily range): BP systolic 128–153; BP diastolic 72–93; O2SAT 97
[2021-08-27] MEDS: LR 1,000 ML IV SCH ×2 (07:48→21:55)
[2021-08-27] MEDS ORDERED: cefoTEtan DISODIUM 2 GM in D5W MINI-BAG PLUS 50 ML IV ONE (14:00)
[2021-08-27] MEDS ORDERED: BUPIVACAINE HCL 0.25% 30ML VIAL As Ordered ONE (15:07)
[2021-08-27] MEDS ORDERED: dexameTHASONE 4 MG/ML 1ML VIAL (J1100 PER 1MG) As Ordered ONE (16:27)
[2021-08-27] MEDS ORDERED: ROCURONIUM BROMIDE 50 MG/5 ML VIAL As Ordered ONE (16:27)
[2021-08-27] MEDS ORDERED: MIDAZOLAM INJ 2MG/2ML VIAL (J2250 PER 1MG) As Ordered ONE (16:27)
[2021-08-27] MEDS ORDERED: ONDANSETRON 4MG/2ML VIAL As Ordered ONE (16:27)
[2021-08-27] MEDS ORDERED: propofoL 200 MG/20 ML VIAL As Ordered ONE (16:27)
[2021-08-27] MEDS ORDERED: LIDOCAINE 2% 100MG/5ML SDV (FOR ANES.) As Ordered ONE (16:27)
[2021-08-27] MEDS ORDERED: SUCCINYLCHOLINE 100 MG/5 ML SYRINGE (J0330) As Ordered ONE (16:27)
[2021-08-27] MEDS ORDERED: PHENYLephrine 500MCG 5ML (100MCG/ML) SYRINGE As Ordered ONE (16:27)
[2021-08-27] MEDS ORDERED: SUGAMMADEX SODIUM 500 MG/5 ML VIAL (BRIDION) As Ordered ONE (16:27)
[2021-08-27] MEDS ORDERED: fentaNYL 100 MCG/2 ML INJECTION As Ordered ONE ×3 (16:27→20:33)
[2021-08-27] MEDS ORDERED: cefoTEtan INJ 2GM VIAL (S0074 PER 500MG) As Ordered ONE (16:57)
[2021-08-27] MEDS ORDERED: ACETAMINOPHEN 1000MG 100ML IV BTL (OFIRMEV) (J0131 PER 10MG) As Ordered ONE (17:17)
[2021-08-27] MEDS ORDERED: ONDANSETRON 4MG/2ML VIAL IV PRN (21:00)
[2021-08-27] MEDS ORDERED: oxyCODONE 5MG TAB PO PRN (21:00)
[2021-08-27] MEDS ORDERED: LR 1,000 ML IV SCH (21:00)
[2021-08-27] MEDS ORDERED: fentaNYL 100 MCG/2 ML INJECTION IV PRN (21:00)
[2021-08-27] MEDS: rOPINIRole 1MG TAB PO SCH (22:01)
[2021-08-27] MEDS: FLUoxetine 20 MG CAP PO SCH (22:01)
[2021-08-28] VITALS (8 sets, daily range): BP systolic 125–153; BP diastolic 55–85; O2SAT 95–98
[2021-08-28] MEDS: LR 1,000 ML IV SCH ×2 (02:09→14:51)
[2021-08-28] MEDS: LEVOTHYROXINE 150MCG TABLET (0.15MG) PO SCH (05:08)
[2021-08-28] MEDS: ACETAMINOPHEN TAB 650MG DOSE (2X325MG) PO PRN ×3 (05:09→18:03)
[2021-08-28 06:20] LABS: BASO % 0.1 % (0.0-1.0); HEMATOCRIT 36.8 % (36.0-47.0); HEMOGLOBIN 11.9 g/dl (12.0-15.5); LYMPH # 1.7 10^3/uL (1.5-5.0); MEAN CORPUSCULAR HEMOGLOBIN 30.3 pg (27.0-33.0); MEAN CORPUSCULAR HGB CONC 32.3 g/dl (32.0-36.5); MEAN CORPUSCULAR VOLUME 93.6 fl (80.0-96.0); MONO # 0.6 10^3/uL (0.0-0.8); MONO % 5.5 % (2.0-8.0); NEUTROPHILS # 7.6 10^3/uL (1.5-8.5); PLATELET COUNT, AUTOMATED 173 10^3/uL (150-450); RED BLOOD COUNT 3.93 10^6/uL (4.00-5.40); WHITE BLOOD COUNT 9.9 10^3/uL (4.0-10.0)
[2021-08-28 07:04] LABS: ALBUMIN 2.9 GM/DL (3.2-5.2); ALT/SGPT 21 U/L (12-78); BILIRUBIN,TOTAL 0.2 MG/DL (0.2-1.0); BLOOD UREA NITROGEN 9 MG/DL (7-18); CALCIUM LEVEL 8.5 MG/DL (8.8-10.2); CARBON DIOXIDE LEVEL 29 MEQ/L (21-32); CHLORIDE LEVEL 102 MEQ/L (98-107); GLOMERULAR FILTRATION RATE > 60.0 (>45); GLUCOSE, FASTING 105 MG/DL (70-100); POTASSIUM SERUM 4.1 MEQ/L (3.5-5.1); SODIUM LEVEL 137 MEQ/L (136-145); TOTAL PROTEIN 6.7 GM/DL (6.4-8.2)
[2021-08-28] MEDS: ENOXAPARIN 40MG/0.4ML SYRINGE (J1650 PER 10MG) SC SCH (08:11)
[2021-08-28] MEDS: rOPINIRole 1MG TAB PO SCH ×2 (18:03→20:48)
[2021-08-28] MEDS: FLUoxetine 20 MG CAP PO SCH (20:48)
[2021-08-29] MEDS: LR 1,000 ML IV SCH (01:35)
[2021-08-29] MEDS: LEVOTHYROXINE 150MCG TABLET (0.15MG) PO SCH (05:38)
[2021-08-29] MEDS: ACETAMINOPHEN TAB 650MG DOSE (2X325MG) PO PRN ×2 (05:38→17:41)
[2021-08-29 06:00] VITALS: BP 139/74; O2SAT 98
[2021-08-29] MEDS: ENOXAPARIN 40MG/0.4ML SYRINGE (J1650 PER 10MG) SC SCH (09:05)
[2021-08-29 14:00] VITALS: BP 144/85
[2021-08-29] MEDS: rOPINIRole 1MG TAB PO SCH ×2 (17:41→20:01)
[2021-08-29] MEDS: FLUoxetine 20 MG CAP PO SCH (20:01)
[2021-08-29 20:12] VITALS: BP 151/81
[2021-08-30] MEDS: LEVOTHYROXINE 150MCG TABLET (0.15MG) PO SCH (05:54)
[2021-08-30] MEDS: ACETAMINOPHEN TAB 650MG DOSE (2X325MG) PO PRN (05:59)
[2021-08-30 06:18] VITALS: BP 163/82
[2021-08-30] MEDS: ENOXAPARIN 40MG/0.4ML SYRINGE (J1650 PER 10MG) SC SCH (09:13)
== END 2021-08-30 12:15 | disposition home or self-care (01) | DRG 336 ==
LOC: M ED 15:40 → M ED INP 20:26 → M MS5PR 22:26
PROVIDERS: ADMIT Surgery; ATTEND Surgery
PROC: 0DBU4ZZ Excision of Omentum, Percutaneous Endoscopic Approach (ICD-10-PCS; 2021-08-27)
PROC: 0FN Hepatobiliary System and Pancreas, Release (ICD-10-PCS; principal; 2021-08-27 14:04)
DX: K56.609 Unspecified intestinal obstruction, unspecified as to partial versus complete obstruction (principal); Z68.43 Body mass index [BMI] 50.0-59.9, adult; E66.01 Morbid (severe) obesity due to excess calories; Z88.8 Allergy status to other drugs, medicaments and biological substances; E03.9 Hypothyroidism, unspecified; F32.9 Major depressive disorder, single episode, unspecified; Z85.038 Personal history of other malignant neoplasm of large intestine

== ENCOUNTER → 2022-01-07 | Outpatient (CLI) | payer OTHER ==
[~2022-01-07] MED LIST changes: -ACET1TAB16 PO; +ACET300T48 PO
[2022-01-07 12:15] LABS: BLOOD UREA NITROGEN 15 MG/DL (7-18); CALCIUM LEVEL 9.8 MG/DL (8.8-10.2); CARBON DIOXIDE LEVEL 31 MEQ/L (21-32); CHLORIDE LEVEL 106 MEQ/L (98-107); CHOLESTEROL LEVEL 186 MG/DL (<200); CHOLESTEROL RISK RATIO 3.206 (<5); GLOMERULAR FILTRATION RATE > 60.0 (>45); GLUCOSE, FASTING 97 MG/DL (70-100); HDL CHOLESTEROL 58 MG/DL (>40); LDL CHOLESTEROL 98 MG/DL (<100); NON-HDL-C 128 MG/DL; POTASSIUM SERUM 3.9 MEQ/L (3.5-5.1); SODIUM LEVEL 143 MEQ/L (136-145); THYROID STIMULATING HORMONE 0.184 uIU/ML (0.358-3.740); TRIGLYCERIDES LEVEL 148 MG/DL (<150)
[2022-01-07 12:59] LABS: HEMOGLOBIN A1c 5.3 %
== END ==
LOC: M LAB 10:38
PROVIDERS: ATTEND Family Medicine
DX: E03.9 Hypothyroidism, unspecified (principal)

== ENCOUNTER 2022-05-10 14:52 | Emergency (ER) | payer MEDICARE, OTHER ==
[~2022-05-10] VITALS: Ht 149.9 cm; Wt 113.6 kg
[2022-05-10 14:53] VITALS: BP 166/77
[2022-05-10] MEDS ORDERED: MELO7.5T35 (15:04)
[2022-05-10] MEDS ORDERED: ERGO500029 (15:04)
[2022-05-10] MEDS ORDERED: NORCO, ANEXSIA 5/325MG TABLET (HYDROcodone/ACETAMINOPHEN) PO ONE (19:15)
== END 2022-05-10 19:35 | disposition home or self-care (01) ==
LOC: M ED 14:52
DX: M25.572 Pain in left ankle and joints of left foot (principal); M17.11 Unilateral primary osteoarthritis, right knee; M54.50 Low back pain, unspecified; F41.9 Anxiety disorder, unspecified; F32.A Depression, unspecified; E66.01 Morbid (severe) obesity due to excess calories; J45.909 Unspecified asthma, uncomplicated; Z98.84 Bariatric surgery status; Z91.011 Allergy to milk products; Z88.1 Allergy status to other antibiotic agents; Z79.899 Other long term (current) drug therapy

== ENCOUNTER 2022-05-27 07:39 | Outpatient (RCR) | payer MEDICARE ==
[~2022-05-27 07:39] MED LIST changes: +ERGO500029; +MELO7.5T35
== END 2022-06-03 ==
LOC: M PT 07:39
PROVIDERS: ATTEND Orthopaedic Surgery
DX: S93.402D Sprain of unspecified ligament of left ankle, subsequent encounter (principal)

== ENCOUNTER → 2022-05-31 | Outpatient (CLI) | payer MEDICARE | LOC: M PAIN 08:30 | PROVIDERS: ATTEND Anesthesiology | DX: M79.18 Myalgia, other site (principal); M47.816 Spondylosis without myelopathy or radiculopathy, lumbar region; M48.061 Spinal stenosis, lumbar region without neurogenic claudication; M54.50 Low back pain, unspecified; G89.29 Other chronic pain; E03.9 Hypothyroidism, unspecified; J45.909 Unspecified asthma, uncomplicated; G25.81 Restless legs syndrome; R73.03 Prediabetes; Z86.14 Personal history of Methicillin resistant Staphylococcus aureus infection; Z86.59 Personal history of other mental and behavioral disorders; Z88.1 Allergy status to other antibiotic agents; E66.01 Morbid (severe) obesity due to excess calories; Z68.42 Body mass index [BMI] 45.0-49.9, adult; Z79.890 Hormone replacement therapy; Z79.899 Other long term (current) drug therapy ==

== ENCOUNTER 2022-06-20 07:43 | Outpatient (RCR) | payer MEDICARE | END 2022-07-03 | LOC: M PT 07:43 | PROVIDERS: ATTEND Orthopaedic Surgery | DX: S93.402D Sprain of unspecified ligament of left ankle, subsequent encounter (principal) ==

== ENCOUNTER → 2022-07-02 | Outpatient (CLI) | payer MEDICARE | LOC: M SOG 10:15 | PROVIDERS: ATTEND Orthopaedic Surgery | DX: M17.0 Bilateral primary osteoarthritis of knee (principal) ==

== ENCOUNTER 2022-07-12 10:51 | Outpatient (RCR) | payer MEDICARE | END 2022-08-03 | LOC: M PT 10:51 | PROVIDERS: ATTEND Orthopaedic Surgery | DX: S93.402D Sprain of unspecified ligament of left ankle, subsequent encounter (principal) ==

== ENCOUNTER → 2022-07-31 | Outpatient (CLI) | payer MEDICARE | LOC: M PLAIMG 14:21 | PROVIDERS: ATTEND Anesthesiology | DX: M48.061 Spinal stenosis, lumbar region without neurogenic claudication (principal); M51.26 Other intervertebral disc displacement, lumbar region; M47.816 Spondylosis without myelopathy or radiculopathy, lumbar region ==

== ENCOUNTER → 2022-08-14 | Outpatient (CLI) | payer MEDICARE | LOC: M PAIN 15:00 | PROVIDERS: ATTEND Anesthesiology | DX: M79.18 Myalgia, other site (principal); M54.50 Low back pain, unspecified; G89.29 Other chronic pain; M25.561 Pain in right knee; M25.562 Pain in left knee; E03.9 Hypothyroidism, unspecified; J45.909 Unspecified asthma, uncomplicated; G25.81 Restless legs syndrome; R73.03 Prediabetes; Z86.14 Personal history of Methicillin resistant Staphylococcus aureus infection; Z86.59 Personal history of other mental and behavioral disorders; Z88.1 Allergy status to other antibiotic agents; E66.01 Morbid (severe) obesity due to excess calories; Z68.42 Body mass index [BMI] 45.0-49.9, adult; Z79.890 Hormone replacement therapy; Z79.899 Other long term (current) drug therapy ==

== ENCOUNTER → 2022-10-02 | Outpatient (CLI) | payer MEDICARE | LOC: M LABSMTC 09:49 | PROVIDERS: ATTEND Anesthesiology | DX: Z01.812 Encounter for preprocedural laboratory examination (principal); Z20.822 Contact with and (suspected) exposure to COVID-19 ==

== ENCOUNTER → 2022-10-04 | Outpatient (CLI) | payer MEDICARE ==
[~2022-10-04] MED LIST changes: +BUPIVACAINE HCL 0.25% 10ML VIAL As Ordered ONE; +BUPIVACAINE HCL 0.25% 30ML VIAL As Ordered ONE; +TRIAMCINOLONE ACETONIDE SUSP 40MG/ML 1ML VIAL As Ordered ONE
== END ==
LOC: M PAIN 15:00
PROVIDERS: ATTEND Anesthesiology
DX: M79.18 Myalgia, other site (principal); G89.29 Other chronic pain; E03.9 Hypothyroidism, unspecified; J45.909 Unspecified asthma, uncomplicated; Z86.14 Personal history of Methicillin resistant Staphylococcus aureus infection; G25.81 Restless legs syndrome; R73.03 Prediabetes; Z86.59 Personal history of other mental and behavioral disorders; Z88.1 Allergy status to other antibiotic agents; E66.01 Morbid (severe) obesity due to excess calories; Z68.42 Body mass index [BMI] 45.0-49.9, adult; Z79.890 Hormone replacement therapy; Z79.899 Other long term (current) drug therapy

== ENCOUNTER → 2022-10-30 | Outpatient (CLI) | payer MEDICARE ==
[~2022-10-30] MED LIST changes: -BUPIVACAINE HCL 0.25% 10ML VIAL As Ordered ONE; -BUPIVACAINE HCL 0.25% 30ML VIAL As Ordered ONE; -TRIAMCINOLONE ACETONIDE SUSP 40MG/ML 1ML VIAL As Ordered ONE
== END ==
LOC: M SOG 11:23
PROVIDERS: ATTEND Orthopaedic Surgery
DX: M17.0 Bilateral primary osteoarthritis of knee (principal)

== ENCOUNTER → 2022-10-31 | Outpatient (CLI) | payer MEDICARE | LOC: M PAIN 14:15 | PROVIDERS: ATTEND Nurse Practitioner Family | DX: M46.1 Sacroiliitis, not elsewhere classified (principal); G89.29 Other chronic pain; E03.9 Hypothyroidism, unspecified; J45.909 Unspecified asthma, uncomplicated; G25.81 Restless legs syndrome; R73.03 Prediabetes; Z86.14 Personal history of Methicillin resistant Staphylococcus aureus infection; Z86.59 Personal history of other mental and behavioral disorders; Z88.1 Allergy status to other antibiotic agents; E66.01 Morbid (severe) obesity due to excess calories; Z68.42 Body mass index [BMI] 45.0-49.9, adult; Z79.890 Hormone replacement therapy; Z79.899 Other long term (current) drug therapy ==

== ENCOUNTER → 2023-02-11 | Outpatient (CLI) | payer MEDICARE ==
[~2023-02-11] MED LIST changes: -ROPI1TAB3 PO; +ROPI1TAB73 PO
[2023-02-11 18:06] LABS: BASO % 0.5 % (0.0-1.0); EOS # 0.2 10^3/uL (0.0-0.5); EOS % 2.5 % (0.0-3.0); HEMATOCRIT 38.5 % (36.0-47.0); HEMOGLOBIN 12.2 g/dl (12.0-15.5); LYMPH # 3.2 10^3/uL (1.5-5.0); LYMPH % 41.9 % (24.0-44.0); MEAN CORPUSCULAR HEMOGLOBIN 31.3 pg (27.0-33.0); MEAN CORPUSCULAR HGB CONC 31.7 g/dl (32.0-36.5); MEAN CORPUSCULAR VOLUME 98.7 fl (80.0-96.0); MONO # 0.8 10^3/uL (0.0-0.8); MONO % 10.7 % (2.0-8.0); NEUTROPHILS # 3.4 10^3/uL (1.5-8.5); NEUTROPHILS % 44.1 % (36.0-66.0); PLATELET COUNT, AUTOMATED 175 10^3/uL (150-450); WHITE BLOOD COUNT 7.6 10^3/uL (4.0-10.0)
[2023-02-11 18:13] LABS: ALBUMIN 3.4 G/DL (3.2-5.2); ALKALINE PHOSPHATASE 62 U/L (46-116); ALT/SGPT 15 U/L (7.0-40); AST/SGOT 18 U/L (<34); BILIRUBIN,TOTAL 0.4 MG/DL (0.3-1.2); BLOOD UREA NITROGEN 18 MG/DL (9-23); CALCIUM LEVEL 9.9 MG/DL (8.3-10.6); CARBON DIOXIDE LEVEL 29 MMOL/L (20-31); CHLORIDE LEVEL 103 MMOL/L (98-107); CREATININE FOR GFR 0.66 MG/DL (0.55-1.30); FOLATE 10.02 NG/ML (>5.4); GLOMERULAR FILTRATION RATE > 60.0 (>45); GLUCOSE, FASTING 87 MG/DL (74-106); POTASSIUM SERUM 4.3 MMOL/L (3.5-5.1); SODIUM LEVEL 139 MMOL/L (136-145); TOTAL PROTEIN 6.7 G/DL (5.7-8.2); VITAMIN B12 LEVEL 343 PG/ML (211-911)
[2023-02-11 18:14] LABS: FERRITIN 83.8 NG/ML (7.3-270.7)
== END ==
LOC: M WUC 13:42
PROVIDERS: ATTEND Psychiatry & Neurology Neurology
DX: G25.0 Essential tremor (principal); G25.81 Restless legs syndrome

== ENCOUNTER → 2023-02-14 | Outpatient (CLI) | payer MEDICARE | LOC: M RAD 11:19 | PROVIDERS: ATTEND Nurse Practitioner Family | DX: M46.1 Sacroiliitis, not elsewhere classified (principal) ==

== ENCOUNTER → 2023-02-14 | Outpatient (CLI) | payer MEDICARE | LOC: M PAIN 09:30 | PROVIDERS: ATTEND Nurse Practitioner Family | DX: M46.1 Sacroiliitis, not elsewhere classified (principal); G89.29 Other chronic pain; E03.9 Hypothyroidism, unspecified; J45.909 Unspecified asthma, uncomplicated; G25.81 Restless legs syndrome; R73.03 Prediabetes; Z86.14 Personal history of Methicillin resistant Staphylococcus aureus infection; Z86.59 Personal history of other mental and behavioral disorders; Z88.1 Allergy status to other antibiotic agents; E66.01 Morbid (severe) obesity due to excess calories; Z68.42 Body mass index [BMI] 45.0-49.9, adult; Z79.890 Hormone replacement therapy; Z79.899 Other long term (current) drug therapy | CPT/HCPCS: 72190; G0463 ==

== ENCOUNTER → 2023-03-05 | Outpatient (CLI) | payer MEDICARE ==
[~2023-03-05] MED LIST changes: +DICL100G10 TOP; -DICL1GEL3 TOP
[2023-03-05 17:29] LABS: URIC ACID 6.2 MG/DL (3.1-7.8)
[2023-03-05 17:32] LABS: ALBUMIN 3.9 G/DL (3.2-5.2); ALKALINE PHOSPHATASE 63 U/L (46-116); ALT/SGPT 17 U/L (7.0-40); AST/SGOT 16 U/L (<34); BILIRUBIN,TOTAL 0.5 MG/DL (0.3-1.2); BLOOD UREA NITROGEN 13 MG/DL (9-23); CALCIUM LEVEL 9.4 MG/DL (8.3-10.6); CARBON DIOXIDE LEVEL 30 MMOL/L (20-31); CHLORIDE LEVEL 100 MMOL/L (98-107); CREATININE FOR GFR 0.65 MG/DL (0.55-1.30); GLOMERULAR FILTRATION RATE > 60.0 (>45); GLUCOSE, FASTING 83 MG/DL (74-106); POTASSIUM SERUM 4.5 MMOL/L (3.5-5.1); SODIUM LEVEL 138 MMOL/L (136-145); TOTAL 25(OH) VITAMIN D 69.7 NG/ML (20.0-100.0); TOTAL PROTEIN 7.2 G/DL (5.7-8.2)
[2023-03-05 17:33] LABS: FREE T4 1.47 NG/DL (0.89-1.76); THYROID STIMULATING HORMONE 0.252 uIU/ML (0.55-4.78)
[2023-03-07 23:11] LABS: ANA (HEP2) Positive (.)
== END ==
LOC: M WUC 11:50
PROVIDERS: ATTEND Family Medicine
DX: M19.90 Unspecified osteoarthritis, unspecified site (principal); E03.9 Hypothyroidism, unspecified; Z79.899 Other long term (current) drug therapy

== ENCOUNTER → 2023-04-16 | Outpatient (CLI) | payer MEDICARE ==
[~2023-04-16] MED LIST changes: +MECL-209 PO; -MECL1TAB31 PO
== END ==
LOC: M PLAIMG 12:37
PROVIDERS: ATTEND Nurse Practitioner Family
DX: M46.1 Sacroiliitis, not elsewhere classified (principal)

== ENCOUNTER → 2023-05-27 | Outpatient (CLI) | payer MEDICARE | LOC: M PAIN 14:45 | PROVIDERS: ATTEND Nurse Practitioner Family | DX: M46.1 Sacroiliitis, not elsewhere classified (principal); G89.29 Other chronic pain; Z86.14 Personal history of Methicillin resistant Staphylococcus aureus infection; Z85.038 Personal history of other malignant neoplasm of large intestine; Z88.1 Allergy status to other antibiotic agents; E66.01 Morbid (severe) obesity due to excess calories; Z68.42 Body mass index [BMI] 45.0-49.9, adult; Z79.899 Other long term (current) drug therapy ==

== ENCOUNTER → 2023-06-05 | Outpatient (CLI) | payer MEDICARE | LOC: M SOG 10:03 | PROVIDERS: ATTEND Orthopaedic Surgery | DX: M17.0 Bilateral primary osteoarthritis of knee (principal) ==

== ENCOUNTER → 2023-06-05 | Outpatient (CLI) | payer MEDICARE ==
[2023-06-05 16:51] LABS: BASO % 0.5 % (0.0-1.0); EOS # 0.2 10^3/uL (0.0-0.5); EOS % 2.9 % (0.0-3.0); HEMATOCRIT 41.9 % (36.0-47.0); HEMOGLOBIN 13.1 g/dl (12.0-15.5); LYMPH # 3.1 10^3/uL (1.5-5.0); LYMPH % 42.3 % (24.0-44.0); MEAN CORPUSCULAR HEMOGLOBIN 30.5 pg (27.0-33.0); MEAN CORPUSCULAR HGB CONC 31.3 g/dl (32.0-36.5); MEAN CORPUSCULAR VOLUME 97.4 fl (80.0-96.0); MONO # 0.8 10^3/uL (0.0-0.8); MONO % 10.5 % (2.0-8.0); NEUTROPHILS # 3.2 10^3/uL (1.5-8.5); NEUTROPHILS % 43.5 % (36.0-66.0); PLATELET COUNT, AUTOMATED 204 10^3/uL (150-450); WHITE BLOOD COUNT 7.4 10^3/uL (4.0-10.0)
[2023-06-05 17:21] LABS: HEMOGLOBIN A1c 5.4 % (4.0-6.0)
[2023-06-05 17:24] LABS: ALBUMIN 3.8 G/DL (3.2-5.2); ALKALINE PHOSPHATASE 63 U/L (46-116); ALT/SGPT 19 U/L (7.0-40); AST/SGOT 23 U/L (<34); BILIRUBIN,TOTAL 0.3 MG/DL (0.3-1.2); BLOOD UREA NITROGEN 23 MG/DL (9-23); CALCIUM LEVEL 9.6 MG/DL (8.3-10.6); CARBON DIOXIDE LEVEL 31 MMOL/L (20-31); CHLORIDE LEVEL 103 MMOL/L (98-107); CREATININE FOR GFR 0.78 MG/DL (0.55-1.30); GLOMERULAR FILTRATION RATE > 60.0 (>45); GLUCOSE, FASTING 93 MG/DL (74-106); POTASSIUM SERUM 4.6 MMOL/L (3.5-5.1); SODIUM LEVEL 139 MMOL/L (136-145); TOTAL PROTEIN 7.5 G/DL (5.7-8.2)
[2023-06-05 17:25] LABS: TOTAL 25(OH) VITAMIN D 60.3 NG/ML (20.0-100.0)
== END ==
LOC: M WUC 11:51
PROVIDERS: ATTEND Orthopaedic Surgery
DX: M17.0 Bilateral primary osteoarthritis of knee (principal); Z79.1 Long term (current) use of non-steroidal anti-inflammatories (NSAID); Z79.890 Hormone replacement therapy; Z79.899 Other long term (current) drug therapy

== ENCOUNTER 2023-07-01 09:53 | Outpatient (RCR) | payer MEDICARE | END 2023-07-03 | LOC: M PT 09:53 | PROVIDERS: ATTEND Orthopaedic Surgery | DX: M17.0 Bilateral primary osteoarthritis of knee (principal) ==

== ENCOUNTER → 2023-07-18 | Outpatient (CLI) | payer MEDICARE ==
[~2023-07-18] MED LIST changes: +CVS10CAP7 PO; +FLUO40CA PO; +GABA-1171 PO; +GABA-282 PO; -MELO7.5T35; +MELO7.5T35 PO; +TRAM50TA2 PO
== END ==
LOC: M RAD 15:43
PROVIDERS: ATTEND Internal Medicine
DX: M19.031 Primary osteoarthritis, right wrist (principal); M19.032 Primary osteoarthritis, left wrist; M19.041 Primary osteoarthritis, right hand; M19.042 Primary osteoarthritis, left hand; M19.071 Primary osteoarthritis, right ankle and foot; M19.072 Primary osteoarthritis, left ankle and foot; M06.4 Inflammatory polyarthropathy

== ENCOUNTER → 2023-07-18 | Outpatient (CLI) | payer MEDICARE ==
[~2023-07-18] MED LIST changes: -CVS10CAP7 PO; -FLUO40CA PO; -GABA-1171 PO; -GABA-282 PO; +MELO7.5T35; -MELO7.5T35 PO; -TRAM50TA2 PO
== END ==
LOC: M RAD 15:40
PROVIDERS: ATTEND Orthopaedic Surgery
DX: M17.0 Bilateral primary osteoarthritis of knee (principal)

== ENCOUNTER → 2023-07-18 | Outpatient (REF) | payer MEDICARE ==
[~2023-07-18] MED LIST changes: +CVS10CAP7 PO; +FLUO40CA PO; +GABA-1171 PO; +GABA-282 PO; -MELO7.5T35; +MELO7.5T35 PO; +TRAM50TA2 PO
[2023-07-18 17:39] LABS: APPEARANCE, URINE CLEAR (CLEAR); BACTERIA, URINE AUTO NEGATIVE (NEGATIVE); BILIRUBIN, URINE AUTO NEGATIVE (NEGATIVE); BLOOD, URINE BLOOD 1+ (NEGATIVE); COLOR, URINE YELLOW (YELLOW); GLUCOSE, URINE (UA) AUTO NEGATIVE (NEGATIVE); KETONE, URINE AUTO NEGATIVE (NEGATIVE); LEUKOCYTE ESTERASE, URINE AUTO NEGATIVE (NEGATIVE); MUCUS, URINE SMALL (NEGATIVE); NITRITE, URINE AUTO NEGATIVE (NEGATIVE); PROTEIN, URINE AUTO NEGATIVE (NEGATIVE); RBC, URINE AUTO 0 /HPF (0-3); SPECIFIC GRAVITY URINE AUTO 1.027 (1.002-1.035); SQUAMOUS EPITHELIAL CELL UR AU 4 /HPF (0-6); UROBILINOGEN, URINE AUTO 0.2 mg/dL (0.0-2.0); WBC, URINE AUTO 0 /HPF (0-3)
[2023-07-18 18:20] LABS: TOTAL PROTEIN,RANDOM URINE 11.9 MG/DL (0.0-14.0)
[2023-07-18 18:23] LABS: C REACTIVE PROTEIN QUANTITATIV 1.5 MG/DL (<1.0)
[2023-07-18 18:24] LABS: CREATININE,RANDOM URINE 128.9 MG/DL
[2023-07-18 18:29] LABS: COMPLEMENT C3 153.1 MG/DL (90.0-170.0); COMPLEMENT C4 30.3 MG/DL (12-36)
[2023-07-22 11:41] LABS: DRVV SCREEN 35.7 SECONDS
[2023-07-22 11:53] LABS: PTT LUPUS TYPE ANTICOAG SCREEN 0.9 (0-1.20)
== END ==
LOC: M SFHCRHEU 14:55
PROVIDERS: ATTEND Internal Medicine
DX: M54.9 Dorsalgia, unspecified (principal); M06.4 Inflammatory polyarthropathy; R20.2 Paresthesia of skin; R76.8 Other specified abnormal immunological findings in serum; M79.642 Pain in left hand; M79.641 Pain in right hand

== ENCOUNTER 2023-08-05 09:30 | Observation (INO) | payer MEDICARE ==
[~2023-08-05] VITALS: Ht 152.4 cm; Wt 105.8 kg
[~2023-08-05 09:30] MED LIST changes: +ROPIVA 100MG/KETOR 15MG/EPINEPHRINE 0.3MG IN NS 50ML SYRINGE PA ONE; +TRANEXAMIC ACID 100 MG/ML 10ML VIAL IV ONE; +ceFAZolin SOD 1 GM in D5W MINI-BAG PLUS 50 ML IV ONE; +ceFAZolin SOD 2 GM in IV 1 EA IV ONE
[2023-08-05] MEDS ORDERED: LR 1,000 ML IV SCH ×2 (10:05→13:55)
[2023-08-05] MEDS ORDERED: ePHEDrine SULFATE 25 MG/5 ML(5MG/ML) SYRINGE As Ordered ONE (12:02)
[2023-08-05] MEDS ORDERED: fentaNYL 100 MCG/2 ML INJECTION As Ordered ONE (12:10)
[2023-08-05] MEDS ORDERED: ROCURONIUM BROMIDE 50MG/5ML VIAL As Ordered ONE ×2 (12:10→12:23)
[2023-08-05] MEDS ORDERED: ONDANSETRON 4MG 2ML VIAL As Ordered ONE (12:10)
[2023-08-05] MEDS ORDERED: SUGAMMADEX SODIUM 500 MG/5 ML VIAL (BRIDION) As Ordered ONE (12:10)
[2023-08-05] MEDS ORDERED: MIDAZOLAM INJ 2MG/2ML VIAL As Ordered ONE (12:10)
[2023-08-05] MEDS ORDERED: LIDOCAINE 2% 100MG/5ML SDV (FOR ANES.) As Ordered ONE (12:10)
[2023-08-05] MEDS ORDERED: propofoL 200 MG/20 ML VIAL As Ordered ONE (12:10)
[2023-08-05] MEDS ORDERED: ACETAMINOPHEN 1000MG 100ML IV BAG As Ordered ONE (12:12)
[2023-08-05] MEDS ORDERED: HYDROmorphone HCL 2MG/ML 1ML VIAL As Ordered ONE (12:20)
[2023-08-05] MEDS ORDERED: ONDANSETRON 4MG 2ML VIAL IV PRN ×2 (13:55→14:15)
[2023-08-05] MEDS ORDERED: METOCLOPRAMIDE INJ 10MG/2ML VIAL IV PRN (13:55)
[2023-08-05] MEDS ORDERED: fentaNYL 100 MCG/2 ML INJECTION IV PRN (13:55)
[2023-08-05] MEDS ORDERED: SENNA 8.6 MG TAB (SENOKOT) PO PRN (14:15)
[2023-08-05] MEDS: HYDROMORPHONE HCL 0.5 MG/ 0.5 ML SYRINGE IV PRN ×4 (14:57→15:17)
[2023-08-05] MEDS: oxyCODONE 5MG TAB PO PRN ×3 (14:58→23:43)
[2023-08-05] MEDS ORDERED: GLUCAGON INJ 1MG VIAL SC PRN (16:20)
[2023-08-05] MEDS ORDERED: DEXTROSE 50% 50ML SYRINGE IV PRN (16:20)
[2023-08-05] MEDS ORDERED: GLUCOSE 4GM CHEW TABLET PO PRN (16:20)
[2023-08-05 16:30] VITALS: BP 136/70; TEMP 97.7; O2SAT 94
[2023-08-05] MEDS: LR 1,000 ML IV SCH ×2 (16:30→22:06)
[2023-08-05 17:05] VITALS: BP 139/86; TEMP 97.7; O2SAT 95
[2023-08-05] MEDS: ACETAMINOPHEN TAB 650MG DOSE (2X325MG) PO SCH ×2 (17:48→23:43)
[2023-08-05] MEDS: INSULIN LISPRO (NovoLOG) PER UNIT SC SCH (17:49)
[2023-08-05 20:00] VITALS: BP 134/64; TEMP 97; O2SAT 96
[2023-08-05] MEDS: rOPINIRole 1MG TAB PO SCH (20:17)
[2023-08-05] MEDS: GABAPENTIN 300 MG CAP PO SCH (20:17)
[2023-08-05] MEDS: ceFAZolin SOD 2 GM in IV 1 EA IV SCH (20:17)
[2023-08-05] MEDS: DOCUSATE SODIUM 100MG CAPSULE PO SCH (20:17)
[2023-08-05] MEDS: ASPIRIN 81MG ENTERIC TABLET PO SCH (20:17)
[2023-08-05 21:00] VITALS: BP 132/66; TEMP 96.2; O2SAT 95
[2023-08-06 01:00] VITALS: BP 110/58; TEMP 97.2; O2SAT 96
[2023-08-06] MEDS: ceFAZolin SOD 2 GM in IV 1 EA IV SCH (04:08)
[2023-08-06 05:00] VITALS: BP 122/64; TEMP 97.4; O2SAT 96
[2023-08-06] MEDS: LEVOTHYROXINE 112MCG TABLET (0.112MG) PO SCH (05:33)
[2023-08-06] MEDS: ACETAMINOPHEN TAB 650MG DOSE (2X325MG) PO SCH ×3 (05:34→17:29)
[2023-08-06] MEDS: oxyCODONE 5MG TAB PO PRN ×3 (06:19→17:30)
[2023-08-06 06:20] LABS: HEMATOCRIT 31.3 % (36.0-47.0); HEMOGLOBIN 10.2 g/dl (12.0-15.5); MEAN CORPUSCULAR HEMOGLOBIN 30.9 pg (27.0-33.0); MEAN CORPUSCULAR HGB CONC 32.6 g/dl (32.0-36.5); MEAN CORPUSCULAR VOLUME 94.8 fl (80.0-96.0); PLATELET COUNT, AUTOMATED 144 10^3/uL (150-450); WHITE BLOOD COUNT 10.3 10^3/uL (4.0-10.0)
[2023-08-06 06:37] LABS: INR 1.15; PROTHROMBIN TIME 14.3 SECONDS (12.5-14.5)
[2023-08-06 06:44] LABS: ALBUMIN 2.9 G/DL (3.2-5.2); ALKALINE PHOSPHATASE 51 U/L (46-116); ALT/SGPT 12 U/L (7.0-40); AST/SGOT 17 U/L (<34); BILIRUBIN,TOTAL 0.2 MG/DL (0.3-1.2); BLOOD UREA NITROGEN 22 MG/DL (9-23); CALCIUM LEVEL 8.3 MG/DL (8.3-10.6); CARBON DIOXIDE LEVEL 29 MMOL/L (20-31); CHLORIDE LEVEL 103 MMOL/L (98-107); CREATININE FOR GFR 0.79 MG/DL (0.55-1.30); GLOMERULAR FILTRATION RATE > 60.0 (>45); GLUCOSE, FASTING 124 MG/DL (74-106); PHOSPHORUS LEVEL 3.9 MG/DL (2.4-5.1); POTASSIUM SERUM 3.8 MMOL/L (3.5-5.1); SODIUM LEVEL 139 MMOL/L (136-145); TOTAL PROTEIN 5.7 G/DL (5.7-8.2)
[2023-08-06] MEDS: GABAPENTIN 300 MG CAP PO SCH ×2 (07:49→20:53)
[2023-08-06] MEDS: ASPIRIN 81MG ENTERIC TABLET PO SCH ×2 (07:49→20:53)
[2023-08-06] MEDS: FLUoxetine 20MG CAP PO SCH (07:50)
[2023-08-06] MEDS: FERROUS SULFATE 325MG TAB PO SCH (07:50)
[2023-08-06] MEDS: DOCUSATE SODIUM 100MG CAPSULE PO SCH ×2 (07:50→20:54)
[2023-08-06] MEDS: ASCORBIC ACID 500 MG TAB PO SCH (07:50)
[2023-08-06] MEDS: INSULIN LISPRO (NovoLOG) PER UNIT SC SCH ×3 (07:51→17:28)
[2023-08-06 09:00] VITALS: BP 122/60; TEMP 98.1; O2SAT 94
[2023-08-06 12:46] VITALS: BP 110/64; TEMP 97.5; O2SAT 99
[2023-08-06 16:52] VITALS: BP 132/72; TEMP 97.9; O2SAT 97
[2023-08-06] MEDS: rOPINIRole 1MG TAB PO SCH ×2 (17:28→20:53)
[2023-08-06 20:49] VITALS: BP 139/57; TEMP 97.7; O2SAT 96
[2023-08-07] MEDS: ACETAMINOPHEN TAB 650MG DOSE (2X325MG) PO SCH ×3 (00:27→12:49)
[2023-08-07] MEDS: LEVOTHYROXINE 112MCG TABLET (0.112MG) PO SCH (05:27)
[2023-08-07 05:59] VITALS: BP 155/73; TEMP 97.5; O2SAT 96
[2023-08-07 06:58] LABS: HEMATOCRIT 34.5 % (36.0-47.0); MEAN CORPUSCULAR HEMOGLOBIN 30.7 pg (27.0-33.0); MEAN CORPUSCULAR HGB CONC 31.9 g/dl (32.0-36.5); MEAN CORPUSCULAR VOLUME 96.4 fl (80.0-96.0); PLATELET COUNT, AUTOMATED 144 10^3/uL (150-450); RED BLOOD COUNT 3.58 10^6/uL (4.00-5.40)
[2023-08-07 07:18] LABS: INR 1.07; PROTHROMBIN TIME 13.6 SECONDS (12.5-14.5)
[2023-08-07 07:29] LABS: ALBUMIN 3.1 G/DL (3.2-5.2); ALKALINE PHOSPHATASE 56 U/L (46-116); ALT/SGPT < 9 U/L (7.0-40); AST/SGOT 17 U/L (<34); BILIRUBIN,TOTAL 0.5 MG/DL (0.3-1.2); BLOOD UREA NITROGEN 14 MG/DL (9-23); CALCIUM LEVEL 8.3 MG/DL (8.3-10.6); CARBON DIOXIDE LEVEL 28 MMOL/L (20-31); CHLORIDE LEVEL 108 MMOL/L (98-107); CREATININE FOR GFR 0.63 MG/DL (0.55-1.30); GLOMERULAR FILTRATION RATE > 60.0 (>45); GLUCOSE, FASTING 102 MG/DL (74-106); PHOSPHORUS LEVEL 2.7 MG/DL (2.4-5.1); SODIUM LEVEL 143 MMOL/L (136-145); TOTAL PROTEIN 6.3 G/DL (5.7-8.2)
[2023-08-07] MEDS: INSULIN LISPRO (NovoLOG) PER UNIT SC SCH ×2 (07:30→12:00)
[2023-08-07] MEDS: ASPIRIN 81MG ENTERIC TABLET PO SCH (08:31)
[2023-08-07] MEDS: GABAPENTIN 300 MG CAP PO SCH (08:31)
[2023-08-07] MEDS: FERROUS SULFATE 325MG TAB PO SCH (08:31)
[2023-08-07] MEDS: oxyCODONE 5MG TAB PO PRN ×2 (08:31→12:49)
[2023-08-07] MEDS: FLUoxetine 20MG CAP PO SCH (08:31)
[2023-08-07] MEDS: ASCORBIC ACID 500 MG TAB PO SCH (08:31)
[2023-08-07] MEDS: DOCUSATE SODIUM 100MG CAPSULE PO SCH (08:31)
[2023-08-07] MEDS ORDERED: OXYC-517 PO (12:53)
[2023-08-07] MEDS ORDERED: ASPI81TAEC PO (12:53)
[2023-08-07] MEDS ORDERED: CEFA500C2 PO (14:41)
== END 2023-08-07 15:00 | disposition home or self-care (01) ==
LOC: M SDC 09:30 → M RR INP 09:31 → ENRESERV 15:54 → M MS5PR 16:15 → INTOOBSV 08-06 09:49 → OBSVTOIN 08-06 09:49
PROVIDERS: ADMIT Orthopaedic Surgery; ATTEND Orthopaedic Surgery
DX: M17.11 Unilateral primary osteoarthritis, right knee (principal); E03.9 Hypothyroidism, unspecified; K57.92 Diverticulitis of intestine, part unspecified, without perforation or abscess without bleeding; M79.7 Fibromyalgia; J45.909 Unspecified asthma, uncomplicated; Z98.84 Bariatric surgery status; Z92.21 Personal history of antineoplastic chemotherapy; F41.9 Anxiety disorder, unspecified; F32.A Depression, unspecified; Z88.1 Allergy status to other antibiotic agents; E73.9 Lactose intolerance, unspecified
CPT/HCPCS: 27447; 36415; 73560; 73590; 80053; 85027; 85610; 87635; 96365; 96366; 97110; 97116; 97161; 97165; 97530; 97535; C1776; G0378; J0131; J0690; J1100; J1170; J1815; J2250; J2405; J3010; S2900

== ENCOUNTER → 2023-08-18 | Outpatient (CLI) | payer MEDICARE ==
[~2023-08-18] MED LIST changes: +ASPI81TAEC PO; +CEFA500C2 PO; +OXYC-517 PO; -ROPIVA 100MG/KETOR 15MG/EPINEPHRINE 0.3MG IN NS 50ML SYRINGE PA ONE; -TRANEXAMIC ACID 100 MG/ML 10ML VIAL IV ONE; -ceFAZolin SOD 1 GM in D5W MINI-BAG PLUS 50 ML IV ONE; -ceFAZolin SOD 2 GM in IV 1 EA IV ONE
== END ==
LOC: M SOG 08:17
PROVIDERS: ATTEND Orthopaedic Surgery
DX: Z47.1 Aftercare following joint replacement surgery (principal); Z96.651 Presence of right artificial knee joint

== ENCOUNTER 2023-09-02 11:22 | Outpatient (RCR) | payer MEDICARE | END 2023-09-03 | LOC: M PT 11:22 | PROVIDERS: ATTEND Orthopaedic Surgery | DX: Z47.89 Encounter for other orthopedic aftercare (principal); Z96.651 Presence of right artificial knee joint ==

== ENCOUNTER → 2023-09-25 | Outpatient (CLI) | payer MEDICARE | LOC: M RAD 06:35 | PROVIDERS: ATTEND Internal Medicine | DX: M54.9 Dorsalgia, unspecified (principal) ==

== ENCOUNTER → 2023-09-29 | Outpatient (CLI) | payer MEDICARE | LOC: M SOG 13:13 | PROVIDERS: ATTEND Orthopaedic Surgery | DX: M17.12 Unilateral primary osteoarthritis, left knee (principal) ==

== ENCOUNTER 2023-09-30 11:22 | Outpatient (RCR) | payer MEDICARE | END 2023-10-02 | LOC: M PT 11:22 | PROVIDERS: ATTEND Orthopaedic Surgery | DX: Z96.651 Presence of right artificial knee joint (principal) ==

== ENCOUNTER → 2023-09-30 | Outpatient (CLI) | payer MEDICARE ==
[2023-09-30 12:17] LABS: BASO % 0.5 % (0.0-1.0); EOS # 0.3 10^3/uL (0.0-0.5); EOS % 4.1 % (0.0-3.0); HEMATOCRIT 37.7 % (36.0-47.0); LYMPH # 2.4 10^3/uL (1.5-5.0); LYMPH % 36.1 % (24.0-44.0); MEAN CORPUSCULAR HEMOGLOBIN 30.7 pg (27.0-33.0); MEAN CORPUSCULAR HGB CONC 31.8 g/dl (32.0-36.5); MEAN CORPUSCULAR VOLUME 96.4 fl (80.0-96.0); MONO # 0.7 10^3/uL (0.0-0.8); NEUTROPHILS # 3.2 10^3/uL (1.5-8.5); NEUTROPHILS % 49.1 % (36.0-66.0); PLATELET COUNT, AUTOMATED 192 10^3/uL (150-450); RED BLOOD COUNT 3.91 10^6/uL (4.00-5.40); WHITE BLOOD COUNT 6.5 10^3/uL (4.0-10.0)
[2023-09-30 12:34] LABS: HEMOGLOBIN A1c 5.2 % (4.0-6.0)
[2023-09-30 12:40] LABS: ALBUMIN 3.6 G/DL (3.2-5.2); ALKALINE PHOSPHATASE 84 U/L (46-116); ALT/SGPT 13 U/L (7.0-40); AST/SGOT 14 U/L (<34); BILIRUBIN,TOTAL 0.4 MG/DL (0.3-1.2); BLOOD UREA NITROGEN 16 MG/DL (9-23); CALCIUM LEVEL 9.1 MG/DL (8.3-10.6); CARBON DIOXIDE LEVEL 31 MMOL/L (20-31); CHLORIDE LEVEL 104 MMOL/L (98-107); GLOMERULAR FILTRATION RATE > 60.0 (>45); GLUCOSE, FASTING 97 MG/DL (74-106); POTASSIUM SERUM 4.1 MMOL/L (3.5-5.1); SODIUM LEVEL 139 MMOL/L (136-145); TOTAL PROTEIN 7.1 G/DL (5.7-8.2)
== END ==
LOC: M LAB 11:10
PROVIDERS: ATTEND Orthopaedic Surgery
DX: M17.12 Unilateral primary osteoarthritis, left knee (principal); Z79.899 Other long term (current) drug therapy

== ENCOUNTER → 2023-10-17 | Outpatient (CLI) | payer MEDICARE | LOC: M SOG 12:49 | PROVIDERS: ATTEND Orthopaedic Surgery | DX: M25.561 Pain in right knee (principal); Z96.651 Presence of right artificial knee joint ==

== ENCOUNTER 2023-10-31 11:25 | Outpatient (RCR) | payer MEDICARE | END 2023-11-02 | LOC: M PT 11:25 | PROVIDERS: ATTEND Orthopaedic Surgery | DX: Z96.651 Presence of right artificial knee joint (principal) ==

== ENCOUNTER → 2023-11-07 | Outpatient (CLI) | payer MEDICARE ==
[2023-11-07 13:20] LABS: BASO % 0.5 % (0.0-1.0); EOS # 0.2 10^3/uL (0.0-0.5); EOS % 3.7 % (0.0-3.0); HEMATOCRIT 39.4 % (36.0-47.0); HEMOGLOBIN 12.4 g/dl (12.0-15.5); LYMPH # 2.6 10^3/uL (1.5-5.0); LYMPH % 39.4 % (24.0-44.0); MEAN CORPUSCULAR HGB CONC 31.5 g/dl (32.0-36.5); MEAN CORPUSCULAR VOLUME 95.2 fl (80.0-96.0); MONO # 0.6 10^3/uL (0.0-0.8); MONO % 9.6 % (2.0-8.0); NEUTROPHILS # 3.1 10^3/uL (1.5-8.5); NEUTROPHILS % 46.5 % (36.0-66.0); PLATELET COUNT, AUTOMATED 185 10^3/uL (150-450); RED BLOOD COUNT 4.14 10^6/uL (4.00-5.40); WHITE BLOOD COUNT 6.6 10^3/uL (4.0-10.0)
[2023-11-07 13:22] LABS: HEMOGLOBIN A1c 5.2 % (4.0-6.0)
[2023-11-07 13:42] LABS: ALBUMIN 3.3 G/DL (3.2-5.2); ALKALINE PHOSPHATASE 74 U/L (46-116); ALT/SGPT 15 U/L (7.0-40); AST/SGOT 18 U/L (<34); BILIRUBIN,TOTAL 0.3 MG/DL (0.3-1.2); BLOOD UREA NITROGEN 18 MG/DL (9-23); CALCIUM LEVEL 9.3 MG/DL (8.3-10.6); CARBON DIOXIDE LEVEL 32 MMOL/L (20-31); CHLORIDE LEVEL 107 MMOL/L (98-107); CREATININE FOR GFR 0.74 MG/DL (0.55-1.30); GLOMERULAR FILTRATION RATE > 60.0 (>45); GLUCOSE, FASTING 98 MG/DL (74-106); POTASSIUM SERUM 4.1 MMOL/L (3.5-5.1); SODIUM LEVEL 141 MMOL/L (136-145); TOTAL PROTEIN 6.7 G/DL (5.7-8.2)
== END ==
LOC: M RAD 12:13
PROVIDERS: ATTEND Orthopaedic Surgery
DX: M17.12 Unilateral primary osteoarthritis, left knee (principal); Z79.899 Other long term (current) drug therapy

== ENCOUNTER 2023-11-20 12:00 | Outpatient (RCR) | payer MEDICARE ==
[~2023-11-20 12:00] MED LIST changes: +ACET-897 PO; -ERGO500029; +IRON65TA2 PO; +MYSO50TA5 PO
[2023-11-25] MEDS ORDERED: DOCU100C16 PO (15:10)
[2023-11-25] MEDS ORDERED: MUPI2OI NARES (15:10)
[2023-11-25] MEDS ORDERED: RA M10TA PO (15:10)
[2023-11-25] MEDS ORDERED: ASPI81TA26 PO (15:10)
[2023-11-26] MEDS ORDERED: SENO8.6T5 PO (08:30)
[2023-11-26] MEDS ORDERED: OXYC1TAB23 PO (08:30)
[2023-11-26] MEDS ORDERED: COLA100C5 PO (08:30)
== END 2023-12-02 ==
LOC: M PT 12:00
PROVIDERS: ATTEND Orthopaedic Surgery
DX: Z47.89 Encounter for other orthopedic aftercare (principal); Z96.651 Presence of right artificial knee joint

== ENCOUNTER 2023-11-25 06:06 | Observation (INO) | payer MEDICARE ==
[~2023-11-25] VITALS: Ht 165.1 cm; Wt 109.0 kg
[2023-11-25] VITALS (8 sets, daily range): BP systolic 118–139; BP diastolic 56–73; TEMP 96.7–97.6; O2SAT 90–98
[2023-11-25] MEDS ORDERED: LR 1,000 ML IV SCH (06:15)
[2023-11-25] MEDS ORDERED: propofoL 200 MG/20 ML VIAL As Ordered ONE (07:03)
[2023-11-25] MEDS ORDERED: MIDAZOLAM INJ 2MG/2ML VIAL As Ordered ONE (07:04)
[2023-11-25] MEDS ORDERED: fentaNYL 100 MCG/2 ML INJECTION As Ordered ONE (07:04)
[2023-11-25] MEDS: TRANEXAMIC ACID 100 MG/ML 10ML VIAL As Ordered ONE (07:10)
[2023-11-25] MEDS ORDERED: ROCURONIUM BROMIDE 50MG/5ML VIAL As Ordered ONE (07:22)
[2023-11-25] MEDS ORDERED: LIDOCAINE 2% 100MG/5ML SDV (FOR ANES.) As Ordered ONE (07:23)
[2023-11-25] MEDS: ceFAZolin SOD 2 GM in IV 1 EA IV ONE (07:30)
[2023-11-25] MEDS: TRANEXAMIC ACID 100 MG/ML 10ML VIAL IV ONE (08:20)
[2023-11-25] MEDS ORDERED: HYDROmorphone HCL 2MG/ML 1ML VIAL As Ordered ONE (08:27)
[2023-11-25] MEDS ORDERED: PHENYLEPHRINE 10MG/ML 1ML VIAL As Ordered ONE (08:32)
[2023-11-25] MEDS ORDERED: ONDANSETRON 4MG 2ML VIAL As Ordered ONE (08:32)
[2023-11-25] MEDS ORDERED: SUGAMMADEX SODIUM 500 MG/5 ML VIAL (BRIDION) As Ordered ONE (08:34)
[2023-11-25] MEDS ORDERED: oxyCODONE 5MG TAB PO PRN ×2 (10:15→11:00)
[2023-11-25] MEDS ORDERED: SENNA 8.6 MG TAB (SENOKOT) PO PRN (10:15)
[2023-11-25] MEDS ORDERED: ONDANSETRON 4MG 2ML VIAL IV PRN ×2 (10:15→11:00)
[2023-11-25] MEDS: ROPIVA 100MG/KETOR 15MG/EPINEPHRINE 0.3MG IN NS 50ML SYRINGE PA ONE (10:15)
[2023-11-25] MEDS: LR 1,000 ML IV SCH ×2 (11:00→15:31)
[2023-11-25] MEDS ORDERED: HYDROMORPHONE HCL 0.5 MG/ 0.5 ML SYRINGE IV PRN (11:00)
[2023-11-25] MEDS ORDERED: fentaNYL 100 MCG/2 ML INJECTION IV PRN (11:00)
[2023-11-25] MEDS: oxyCODONE 5MG TAB PO PRN (13:08)
[2023-11-25] MEDS ORDERED: MUPI2OI NARES (15:10)
[2023-11-25] MEDS ORDERED: DOCU100C16 PO (15:10)
[2023-11-25] MEDS ORDERED: RA M10TA PO (15:10)
[2023-11-25] MEDS ORDERED: ASPI81TA26 PO (15:10)
[2023-11-25] MEDS: ceFAZolin SOD 2 GM in IV 1 EA IV SCH (15:12)
[2023-11-25] MEDS ORDERED: HOME MED LIST COMPLETE! XX SCH (15:15)
[2023-11-25] MEDS: FLUoxetine 20MG CAP PO SCH (15:29)
[2023-11-25] MEDS: ASCORBIC ACID 500 MG TAB PO SCH (15:29)
[2023-11-25] MEDS: ACETAMINOPHEN TAB 650MG DOSE (2X325MG) PO SCH (15:30)
[2023-11-25] MEDS: FERROUS SULFATE 325MG TAB PO SCH (15:30)
[2023-11-25] MEDS: GABAPENTIN 100 MG CAP PO SCH (15:30)
[2023-11-25] MEDS: MELOXICAM (MOBIC) 7.5 MG TAB PO SCH (20:02)
[2023-11-25] MEDS: ASPIRIN 81MG ENTERIC TABLET PO SCH (20:02)
[2023-11-25] MEDS: GABAPENTIN 300 MG CAP PO SCH (20:02)
[2023-11-25] MEDS: DOCUSATE SODIUM 100MG CAPSULE PO SCH (20:02)
[2023-11-25] MEDS: rOPINIRole 1MG TAB PO SCH (20:02)
[2023-11-26 02:00] VITALS: BP 116/62; TEMP 97.8; O2SAT 99
[2023-11-26 06:00] VITALS: BP 118/58; TEMP 97.1; O2SAT 98
[2023-11-26 06:53] LABS: HEMOGLOBIN 10.9 g/dl (12.0-15.5); MEAN CORPUSCULAR HEMOGLOBIN 30.7 pg (27.0-33.0); MEAN CORPUSCULAR HGB CONC 32.1 g/dl (32.0-36.5); MEAN CORPUSCULAR VOLUME 95.8 fl (80.0-96.0); PLATELET COUNT, AUTOMATED 154 10^3/uL (150-450); RED BLOOD COUNT 3.55 10^6/uL (4.00-5.40); WHITE BLOOD COUNT 9.4 10^3/uL (4.0-10.0)
[2023-11-26 07:20] LABS: ALKALINE PHOSPHATASE 62 U/L (46-116); ALT/SGPT 12 U/L (7.0-40); AST/SGOT 15 U/L (<34); BILIRUBIN,TOTAL 0.4 MG/DL (0.3-1.2); BLOOD UREA NITROGEN 21 MG/DL (9-23); CALCIUM LEVEL 8.5 MG/DL (8.3-10.6); CARBON DIOXIDE LEVEL 31 MMOL/L (20-31); CHLORIDE LEVEL 100 MMOL/L (98-107); CREATININE FOR GFR 0.76 MG/DL (0.55-1.30); GLOMERULAR FILTRATION RATE > 60.0 (>45); GLUCOSE, FASTING 107 MG/DL (74-106); POTASSIUM SERUM 3.8 MMOL/L (3.5-5.1); SODIUM LEVEL 137 MMOL/L (136-145); TOTAL PROTEIN 6.2 G/DL (5.7-8.2)
[2023-11-26] MEDS ORDERED: SENO8.6T5 PO (08:30)
[2023-11-26] MEDS ORDERED: OXYC1TAB23 PO (08:30)
[2023-11-26] MEDS ORDERED: COLA100C5 PO (08:30)
[2023-11-26] MEDS: LEVOTHYROXINE 112MCG TABLET (0.112MG) PO SCH (09:45)
[2023-11-26 10:05] VITALS: BP 98/52; TEMP 97.7; O2SAT 98
[2023-11-26] MEDS: PRIMIDONE 25MG PER 1/2 TABLET PO SCH (11:22)
== END 2023-11-26 13:40 | disposition home or self-care (01) ==
LOC: M SDC 06:06 → M RR INP 06:07 → UNDOADMOB 06:07 → M MS4PR 11:54 → M RR INP 11:54 → M MS4PR 11-26 13:25
PROVIDERS: ADMIT Orthopaedic Surgery; ATTEND Orthopaedic Surgery
DX: M17.12 Unilateral primary osteoarthritis, left knee (principal); E03.9 Hypothyroidism, unspecified; Z90.79 Acquired absence of other genital organ(s); Z98.84 Bariatric surgery status; Z96.651 Presence of right artificial knee joint; Z79.890 Hormone replacement therapy; Z79.899 Other long term (current) drug therapy
CPT/HCPCS: 27447; 36415; 73560; 80053; 80069; 85027; 88300; 96374; 96376; 97116; 97161; 97165; 97530; C1776; G0378; J0690; J1100; J1170; J2250; J2371; J2405; J3010

== ENCOUNTER → 2023-12-02 | Outpatient (CLI) | payer MEDICARE ==
[~2023-12-02] MED LIST changes: +ASPI81TA26 PO; +COLA100C5 PO; +DOCU100C16 PO; +MUPI2OI NARES; +OXYC1TAB23 PO; +RA M10TA PO; +SENO8.6T5 PO
== END ==
LOC: M PAIN 15:00
PROVIDERS: ATTEND Nurse Practitioner Family
DX: M46.1 Sacroiliitis, not elsewhere classified (principal); G89.29 Other chronic pain; E03.9 Hypothyroidism, unspecified; F32.A Depression, unspecified; J45.909 Unspecified asthma, uncomplicated; M51.37 Other intervertebral disc degeneration, lumbosacral region; G25.81 Restless legs syndrome; E55.9 Vitamin D deficiency, unspecified; R73.03 Prediabetes; E66.01 Morbid (severe) obesity due to excess calories; M54.50 Low back pain, unspecified; E78.5 Hyperlipidemia, unspecified; M51.16 Intervertebral disc disorders with radiculopathy, lumbar region; Z79.891 Long term (current) use of opiate analgesic; Z79.82 Long term (current) use of aspirin; Z79.890 Hormone replacement therapy; Z79.899 Other long term (current) drug therapy; Z88.1 Allergy status to other antibiotic agents

== ENCOUNTER → 2023-12-08 | Outpatient (CLI) | payer MEDICARE | LOC: M SOG 09:15 | PROVIDERS: ATTEND Orthopaedic Surgery | DX: Z47.1 Aftercare following joint replacement surgery (principal); Z96.652 Presence of left artificial knee joint ==

== ENCOUNTER → 2024-01-08 | Outpatient (CLI) | payer MEDICARE ==
[~2024-01-08] MED LIST changes: +FLUO-365 PO; -FLUO20CA22 PO
== END ==
LOC: M SOG 07:54
PROVIDERS: ATTEND Orthopaedic Surgery
DX: Z47.1 Aftercare following joint replacement surgery (principal); Z96.652 Presence of left artificial knee joint

== ENCOUNTER → 2024-01-23 | Outpatient (CLI) | payer MEDICARE | LOC: M PAIN 09:30 | PROVIDERS: ATTEND Nurse Practitioner Family | DX: M46.1 Sacroiliitis, not elsewhere classified (principal); E03.9 Hypothyroidism, unspecified; J45.909 Unspecified asthma, uncomplicated; G89.29 Other chronic pain; G25.81 Restless legs syndrome; Z79.1 Long term (current) use of non-steroidal anti-inflammatories (NSAID); Z79.84 Long term (current) use of oral hypoglycemic drugs; Z79.890 Hormone replacement therapy; Z79.891 Long term (current) use of opiate analgesic; Z79.899 Other long term (current) drug therapy; Z88.1 Allergy status to other antibiotic agents ==

== ENCOUNTER 2024-01-29 08:30 | Outpatient (RCR) | payer MEDICARE | END 2024-02-01 | LOC: M PT 08:30 | PROVIDERS: ATTEND Orthopaedic Surgery | DX: Z47.89 Encounter for other orthopedic aftercare (principal); Z96.653 Presence of artificial knee joint, bilateral ==

== ENCOUNTER 2024-02-19 07:43 | Outpatient (RCR) | payer MEDICARE | END 2024-03-03 | LOC: M PT 07:43 | PROVIDERS: ATTEND Orthopaedic Surgery | DX: Z47.89 Encounter for other orthopedic aftercare (principal) ==

== ENCOUNTER → 2024-03-04 | Outpatient (CLI) | payer MEDICARE | LOC: M PAIN 09:00 | PROVIDERS: ATTEND Nurse Practitioner Family | DX: M46.1 Sacroiliitis, not elsewhere classified (principal); G89.29 Other chronic pain; Z96.652 Presence of left artificial knee joint; E03.9 Hypothyroidism, unspecified; F32.A Depression, unspecified; J45.909 Unspecified asthma, uncomplicated; E55.9 Vitamin D deficiency, unspecified; R73.03 Prediabetes; E66.01 Morbid (severe) obesity due to excess calories; M54.50 Low back pain, unspecified; E78.5 Hyperlipidemia, unspecified; G25.81 Restless legs syndrome; Z68.42 Body mass index [BMI] 45.0-49.9, adult; Z79.890 Hormone replacement therapy; Z79.1 Long term (current) use of non-steroidal anti-inflammatories (NSAID); Z79.899 Other long term (current) drug therapy; Z88.1 Allergy status to other antibiotic agents ==

== ENCOUNTER → 2024-04-02 | Outpatient (CLI) | payer MEDICARE | LOC: M SOG 08:06 | PROVIDERS: ATTEND Orthopaedic Surgery | DX: Z96.653 Presence of artificial knee joint, bilateral (principal) ==

== ENCOUNTER → 2024-05-17 | Outpatient (CLI) | payer MEDICARE ==
[~2024-05-17] MED LIST changes: +GABA-1172 PO; -GABA-282 PO
== END ==
LOC: M PAIN 16:30
PROVIDERS: ATTEND Nurse Practitioner Family
DX: M46.1 Sacroiliitis, not elsewhere classified (principal); G89.29 Other chronic pain; Z96.653 Presence of artificial knee joint, bilateral; E03.9 Hypothyroidism, unspecified; F32.A Depression, unspecified; J45.909 Unspecified asthma, uncomplicated; M51.372 Other intervertebral disc degeneration, lumbosacral region with discogenic back pain and lower extremity pain; E55.9 Vitamin D deficiency, unspecified; R73.03 Prediabetes; E66.01 Morbid (severe) obesity due to excess calories; M54.50 Low back pain, unspecified; E78.5 Hyperlipidemia, unspecified; G25.81 Restless legs syndrome; R25.1 Tremor, unspecified; Z79.1 Long term (current) use of non-steroidal anti-inflammatories (NSAID); Z79.890 Hormone replacement therapy; Z79.899 Other long term (current) drug therapy; Z88.1 Allergy status to other antibiotic agents; Z68.42 Body mass index [BMI] 45.0-49.9, adult

== ENCOUNTER → 2024-07-09 | Outpatient (CLI) | payer MEDICARE ==
[~2024-07-09] MED LIST changes: +ISOVUE-M 300 61% 15ML VIAL As Ordered ONE; +LIDOCAINE 1% SDV 30ML VIAL As Ordered ONE; +TRIAMCINOLONE ACETONIDE SUSP 40MG/ML 1ML VIAL As Ordered ONE; +diazePAM 5MG TABLET As Ordered ONE; +oxyCODONE 5MG TAB As Ordered ONE
== END ==
LOC: M PAIN 10:00
PROVIDERS: ATTEND Anesthesiology
DX: M46.1 Sacroiliitis, not elsewhere classified (principal); G89.29 Other chronic pain; E03.9 Hypothyroidism, unspecified; F32.A Depression, unspecified; J45.909 Unspecified asthma, uncomplicated; E55.9 Vitamin D deficiency, unspecified; R73.03 Prediabetes; E66.01 Morbid (severe) obesity due to excess calories; E78.5 Hyperlipidemia, unspecified; G25.81 Restless legs syndrome; Z79.1 Long term (current) use of non-steroidal anti-inflammatories (NSAID); Z79.890 Hormone replacement therapy; Z79.899 Other long term (current) drug therapy; Z88.1 Allergy status to other antibiotic agents; Z68.42 Body mass index [BMI] 45.0-49.9, adult
CPT/HCPCS: G0260; J0665; J3301; Q9967

== ENCOUNTER → 2024-08-12 | Outpatient (CLI) | payer MEDICARE, OTHER ==
[~2024-08-12] MED LIST changes: -ISOVUE-M 300 61% 15ML VIAL As Ordered ONE; -LIDOCAINE 1% SDV 30ML VIAL As Ordered ONE; -TRIAMCINOLONE ACETONIDE SUSP 40MG/ML 1ML VIAL As Ordered ONE; -diazePAM 5MG TABLET As Ordered ONE; -oxyCODONE 5MG TAB As Ordered ONE
== END ==
LOC: M PAIN 14:45
PROVIDERS: ATTEND Nurse Practitioner Family
DX: M46.1 Sacroiliitis, not elsewhere classified (principal); G89.29 Other chronic pain; E03.9 Hypothyroidism, unspecified; F32.A Depression, unspecified; J45.909 Unspecified asthma, uncomplicated; M51.360 Other intervertebral disc degeneration, lumbar region with discogenic back pain only; M51.370 Other intervertebral disc degeneration, lumbosacral region with discogenic back pain only; G25.81 Restless legs syndrome; E55.9 Vitamin D deficiency, unspecified; R73.03 Prediabetes; E66.01 Morbid (severe) obesity due to excess calories; E78.5 Hyperlipidemia, unspecified; Z79.1 Long term (current) use of non-steroidal anti-inflammatories (NSAID); Z79.890 Hormone replacement therapy; Z79.899 Other long term (current) drug therapy; Z88.1 Allergy status to other antibiotic agents; Z68.42 Body mass index [BMI] 45.0-49.9, adult

== ENCOUNTER 2024-09-13 12:06 | Emergency (ER) | payer MEDICARE ==
[~2024-09-13] VITALS: Ht 152.4 cm; Wt 111.0 kg
[2024-09-13 14:56] LABS: KETONE, URINE AUTO RFX NEGATIVE (NEGATIVE); LEUKOCYTE ESTERASE UR AUTO RFX NEGATIVE (NEGATIVE); MUCUS, URINE RFX MODERATE (NEGATIVE); NITRITE, URINE AUTO RFX NEGATIVE (NEGATIVE); RBC, URINE AUTO RFX 2 /HPF (0-3); SQUAM EPITHELIAL CELL UR AURFX 11 /HPF (0-6); WBC, URINE AUTO RFX 0 /HPF (0-3)
[2024-09-13 15:19] LABS: HEMOGLOBIN 14.2 g/dl (12.0-15.5); MEAN CORPUSCULAR HEMOGLOBIN 31.8 pg (27.0-33.0); MEAN CORPUSCULAR HGB CONC 32.3 g/dl (32.0-36.5); MEAN CORPUSCULAR VOLUME 98.7 fl (80.0-96.0); PLATELET COUNT, AUTOMATED 168 10^3/uL (150-450); RED BLOOD COUNT 4.46 10^6/uL (4.00-5.40); WHITE BLOOD COUNT 6.2 10^3/uL (4.0-10.0)
[2024-09-13 15:50] LABS: BLOOD UREA NITROGEN 11 MG/DL (9-23); CALCIUM LEVEL 8.5 MG/DL (8.3-10.6); CARBON DIOXIDE LEVEL 28 MMOL/L (20-31); CHLORIDE LEVEL 101 MMOL/L (98-107); CREATININE FOR GFR 0.64 MG/DL (0.55-1.30); GLOMERULAR FILTRATION RATE > 60.0 (>45); GLUCOSE, FASTING 94 MG/DL (74-106); POTASSIUM SERUM 4.4 MMOL/L (3.5-5.1); SODIUM LEVEL 140 MMOL/L (136-145)
[2024-09-13] MEDS ORDERED: ISOVUE-370 76% 100ML VIAL As Ordered ONE (16:10)
[2024-09-13 17:16] VITALS: BP 165/87; TEMP 98.2; O2SAT 99
== END 2024-09-13 17:20 | disposition home or self-care (01) ==
LOC: M ED 12:06
DX: B34.2 Coronavirus infection, unspecified (principal); E03.9 Hypothyroidism, unspecified; F10.10 Alcohol abuse, uncomplicated; K76.0 Fatty (change of) liver, not elsewhere classified; K42.9 Umbilical hernia without obstruction or gangrene; Z98.84 Bariatric surgery status; Z88.8 Allergy status to other drugs, medicaments and biological substances; Z79.82 Long term (current) use of aspirin; Z79.899 Other long term (current) drug therapy; Z79.1 Long term (current) use of non-steroidal anti-inflammatories (NSAID)
CPT/HCPCS: 36415; 74177; 80048; 81001; 85027; 87507; 99283; Q9967

== ENCOUNTER → 2024-10-04 | Outpatient (CLI) | payer MEDICARE | LOC: M SOG 08:12 | PROVIDERS: ATTEND Orthopaedic Surgery | DX: Z96.653 Presence of artificial knee joint, bilateral (principal); Z47.1 Aftercare following joint replacement surgery ==

== ENCOUNTER → 2025-06-21 | Outpatient (REF) | payer MEDICARE ==
[~2025-06-21] MED LIST changes: +SENN-225 PO; -SENO8.6T5 PO
[2025-06-21 15:39] LABS: BASO # 0.1 10^3/uL (0.0-0.2); BASO % 0.7 % (0.0-1.0); EOS # 0.2 10^3/uL (0.0-0.5); EOS % 2.8 % (0.0-3.0); LYMPH # 2.8 10^3/uL (1.5-5.0); LYMPH % 40.1 % (24.0-44.0); MONO # 0.8 10^3/uL (0.0-0.8); MONO % 11.7 % (2.0-8.0); NEUTROPHILS # 3.1 10^3/uL (1.5-8.5); NEUTROPHILS % 44.4 % (36.0-66.0); PLATELET COUNT, AUTOMATED 206 10^3/uL (150-450)
[2025-06-21 15:58] LABS: C REACTIVE PROTEIN QUANTITATIV 0.78 MG/DL (<1.0)
[2025-06-21 15:59] LABS: ALT/SGPT 21.0 U/L (7.0-40); AST/SGOT 26.0 U/L (<34); CALCIUM LEVEL 9.3 MG/DL (8.3-10.6); CARBON DIOXIDE LEVEL 31.0 MMOL/L (20-31); CHLORIDE LEVEL 99.0 MMOL/L (98-107); CREATININE FOR GFR 0.79 MG/DL (0.55-1.30); GLOMERULAR FILTRATION RATE 80.9 (>45); POTASSIUM SERUM 3.8 MMOL/L (3.5-5.1); SODIUM LEVEL 141.0 MMOL/L (136-145)
== END ==
LOC: M SFHCRHEU 12:40
PROVIDERS: ATTEND Internal Medicine
DX: M35.9 Systemic involvement of connective tissue, unspecified (principal)